=== PATIENT | male | born 1940 | race Asian ===

== ENCOUNTER 2020-05-20 09:31 | Emergency (ER) | payer MEDICARE ==
[~2020-05-20] VITALS: Ht 154.9 cm; Wt 62.6 kg
[2020-05-20] MEDS ORDERED: ACCU-CHEK COMFORT CURVE STRIP VI ONE (10:00)
[2020-05-20 10:46] LABS: Hematocrit 41.9 % (41.0-53.0); Mean Corpuscular Hemoglobin 31.2 pg (28.0-32.0); Mean Corpuscular Hgb Conc. 33.4 g/dL (32.0-36.0); Mean Corpuscular Volume 93.4 fL (80.0-100.0); Platelet Count (auto) 220 10^3/uL (140-450); Red Blood Cells 4.48 10^6/uL (4.5-5.90); Red Cell Distribution Width 14.1 % (11.8-14.3); White Blood Cell 14.9 10^3/uL (4.4-10.8)
[2020-05-20 10:52] LABS: Basophils % (manual) 0 (0.0-2.0); Blast Cells 0; Eosinophils % (manual) 0 (0-7); Metamyelocytes % 0; Promyelocytes % 0; Reactive Lymphocytes 0
[2020-05-20] MEDS ORDERED: SODIUM CHLORIDE 0.9% 500 ML IVB ONE (10:53)
[2020-05-20] MEDS ORDERED: SODIUM CHLORIDE 0.9% 1,000 ML IV ONE (10:53)
[2020-05-20] MEDS ORDERED: MECLIZINE HCL 25 MG TAB PO ONE (11:00)
[2020-05-20] MEDS ORDERED: LORazepam 2MG/ML-1ML VIAL IV ONE (11:00)
[2020-05-20] MEDS ORDERED: FUROSEMIDE 20 MG/2 ML VIAL IV ONE (11:00)
[2020-05-20 11:07] LABS: Band Neutrophils % (manual) 4; Lymphocytes % (manual) 11 (10.0-50.0); Monocytes % (manual) 4 (0-12); Myelocytes % 2
[2020-05-20 11:08] LABS: Partial Thromboplastin Time 23.5 sec (23.64-32.05)
[2020-05-20 11:18] LABS: Albumin 3.7 g/dL (3.4-5.0); Calcium 8.8 mg/dL (8.5-10.1); Potassium 3.2 mmol/L (3.5-5.1)
[2020-05-20 11:23] LABS: BUN/Creatinine Ratio 18.5; Bilirubin, Total 0.5 mg/dL (0.2-1.0); Total Protein 7.4 g/dL (6.4-8.2)
[2020-05-20 11:56] LABS: Urine Bacteria NONE SEEN /hpf (None Seen); Urine Blood Negative /uL (Negative); Urine Specific Gravity 1.031 (1.001-1.035); Urine WBC <1 /hpf (0 - 3)
[2020-05-20] MEDS ORDERED: POTASSIUM EFFERVESENT TAB 25 MEQ PO ONE (12:00)
[2020-05-20] MEDS ORDERED: POTASSIUM EFFERVESENT TAB 25 MEQ ONE (12:57)
[2020-05-20 14:00] VITALS: BP 100/55
== END 2020-05-20 16:11 | disposition home or self-care (01) ==
LOC: ER 09:31
DX: H81.13 Benign paroxysmal vertigo, bilateral (principal); E11.65 Type 2 diabetes mellitus with hyperglycemia; E87.6 Hypokalemia; K21.9 Gastro-esophageal reflux disease without esophagitis; I10 Essential (primary) hypertension
CPT/HCPCS: 36415; 70450; 71045; 80053; 81001; 82962; 83735; 84484; 85007; 85027; 85610; 85730; 93005; 96361; 96374; 99285; J1940; J7030; J7040; J8597

== ENCOUNTER 2021-06-21 14:00 | Inpatient (IN) | payer MEDICARE ==
[~2021-06-21] VITALS: Ht 152.4 cm; Wt 59.9 kg
[2021-06-21 15:52] LABS: Hematocrit 43.9 % (41.0-53.0); Hemoglobin 14.9 g/dL (13.5-17.5); Mean Corpuscular Hemoglobin 31.9 pg (28.0-32.0); Mean Corpuscular Hgb Conc. 33.9 g/dL (32.0-36.0); Mean Corpuscular Volume 94.1 fL (80.0-100.0); Red Blood Cells 4.66 10^6/uL (4.5-5.90); Red Cell Distribution Width 14.8 % (11.8-14.3); White Blood Cell 13.1 10^3/uL (4.4-10.8)
[2021-06-21 15:55] LABS: Basophils % (manual) 0 (0.0-2.0); Blast Cells 0; Eosinophils % (manual) 0 (0-7); Metamyelocytes % 0; Myelocytes % 0; Promyelocytes % 0; Reactive Lymphocytes 0
[2021-06-21 16:05] LABS: Albumin 3.5 g/dL (3.4-5.0); Calcium 8.8 mg/dL (8.5-10.1); Potassium 4.7 mmol/L (3.5-5.1)
[2021-06-21 16:07] LABS: INR 0.9 (0.9-1.15); Partial Thromboplastin Time 24.3 sec (23.6-33.0)
[2021-06-21 16:08] LABS: BUN/Creatinine Ratio 25.2; Bilirubin, Total 0.7 mg/dL (0.2-1.0); Total Protein 7.8 g/dL (6.4-8.2)
[2021-06-21 16:35] LABS: Band Neutrophils % (manual) 10; Lymphocytes % (manual) 5 (10.0-50.0); Monocytes % (manual) 7 (0-12)
[2021-06-21] MEDS ORDERED: InsuLIN REG 1unit/0.01ml Soln (100units/ml) IV ONE (17:00)
[2021-06-21] MEDS ORDERED: NITROGLYCERIN 0.4 MG SL TAB SL PRN (19:15)
[2021-06-21] MEDS ORDERED: DEXTROSE (50%) 50ML SYRG IV PRN (19:15)
[2021-06-21] MEDS ORDERED: ACETAMINOPHEN 500 MG TAB PO PRN (19:15)
[2021-06-21] MEDS ORDERED: ONDANSETRON HCL 4 MG/2 ML VIAL IV PRN (19:15)
[2021-06-21] MEDS ORDERED: HYDROcodone-ACET 5/325MG TAB PO PRN (19:15)
[2021-06-21] MEDS ORDERED: MORPHINE SULFATE INJECTION 2 MG/2 ML SYRG IV PRN (19:15)
[2021-06-21] MEDS ORDERED: hydrALAZINE HCL 20 MG/ML VL IV PRN (19:15)
[2021-06-21 20:15] LABS: Cholesterol 215 mg/dL (< 200)
[2021-06-21 20:19] LABS: HDL Cholesterol 31 mg/dL (40-59); Triglycerides 447 mg/dL (< 150)
[2021-06-21 21:00] VITALS: BP 129/70
[2021-06-21] MEDS: ACCU-CHEK COMFORT CURVE STRIP VI SCH (21:52)
[2021-06-21] MEDS: SODIUM CHLORIDE 0.9% 1,000 ML IV SCH (21:53)
[2021-06-21] MEDS: InsuLIN REG 1unit/0.01ml Soln (100units/ml) SC SCH (21:53)
[2021-06-21 22:21] LABS: Urine Bacteria NONE SEEN /hpf (None Seen); Urine Blood Negative /uL (Negative); Urine Mucus FEW (None Seen); Urine Specific Gravity 1.037 (1.001-1.035); Urine WBC <1 /hpf (0 - 3)
[2021-06-22 04:58] VITALS: BP 126/66
[2021-06-22] MEDS: SODIUM CHLORIDE 0.9% 1,000 ML IV SCH ×2 (05:09→17:12)
[2021-06-22 06:07] LABS: Hematocrit 35.5 % (41.0-53.0); Hemoglobin 12.6 g/dL (13.5-17.5); Mean Corpuscular Hemoglobin 32.8 pg (28.0-32.0); Mean Corpuscular Hgb Conc. 35.4 g/dL (32.0-36.0); Mean Corpuscular Volume 92.8 fL (80.0-100.0); Red Blood Cells 3.82 10^6/uL (4.5-5.90); Red Cell Distribution Width 14.6 % (11.8-14.3); White Blood Cell 8.1 10^3/uL (4.4-10.8)
[2021-06-22 06:15] LABS: Potassium 3.8 mmol/L (3.5-5.1)
[2021-06-22 06:20] LABS: BUN/Creatinine Ratio 34.8; Calcium 7.8 mg/dL (8.5-10.1)
[2021-06-22] MEDS: ACCU-CHEK COMFORT CURVE STRIP VI SCH ×4 (06:23→20:57)
[2021-06-22 06:30] LABS: Basophils % (manual) 0 (0.0-2.0); Blast Cells 0; Promyelocytes % 0; Reactive Lymphocytes 0
[2021-06-22] MEDS: InsuLIN REG 1unit/0.01ml Soln (100units/ml) SC SCH ×3 (06:30→17:50)
[2021-06-22 07:01] LABS: Metamyelocytes % 1
[2021-06-22 07:08] LABS: Band Neutrophils % (manual) 23; Eosinophils % (manual) 2 (0-7); Lymphocytes % (manual) 20 (10.0-50.0); Monocytes % (manual) 6 (0-12)
[2021-06-22 07:09] LABS: Myelocytes % 2
[2021-06-22 09:00] VITALS: BP 122/64
[2021-06-22] MEDS ORDERED: ENOXAPARIN SOD 40 MG/0.4 ML SYRINGE SC ONE (10:00)
[2021-06-22 12:48] VITALS: BP 74/40
[2021-06-22] MEDS ORDERED: ceFAZolin 1GM/50ML 50 ML IV ONE (15:00)
[2021-06-22] MEDS ORDERED: DEXTROSE (50%) 50ML SYRG IV PRN (15:00)
[2021-06-22 16:57] VITALS: BP 139/67
[2021-06-22] MEDS: ceFAZolin 1GM/50ML 50 ML IV SCH ×2 (17:12→23:41)
[2021-06-22] MEDS: ATORVASTATIN 20 MG TAB PO SCH (20:57)
[2021-06-22] MEDS ORDERED: ATOR10TA52 PO (21:33)
[2021-06-22] MEDS ORDERED: METF-370 PO (21:33)
[2021-06-22] MEDS ORDERED: GLIP5TAB12 PO (21:33)
[2021-06-22 22:00] VITALS: BP 161/71
[2021-06-22] MEDS ORDERED: InsuLIN REG 1unit/0.01ml Soln (100units/ml) SC SCH (22:00)
[2021-06-23] MEDS: SODIUM CHLORIDE 0.9% 1,000 ML IV SCH ×3 (02:14→13:56)
[2021-06-23] MEDS: ceFAZolin 1GM/50ML 50 ML IV SCH ×4 (05:25→23:49)
[2021-06-23] MEDS: InsuLIN REG 1unit/0.01ml Soln (100units/ml) SC SCH ×4 (05:45→21:13)
[2021-06-23] MEDS: ACCU-CHEK COMFORT CURVE STRIP VI SCH ×4 (05:46→21:14)
[2021-06-23 06:25] VITALS: BP 127/70
[2021-06-23] MEDS ORDERED: PHENYLEPHRINE HCL 10 MG/ML VL IV ONE (06:55)
[2021-06-23] MEDS ORDERED: DexAMETHasone SOD PHOS 10MG/1ML VIAL INJ IV ONE (06:55)
[2021-06-23 09:58] VITALS: BP 125/71
[2021-06-23 13:00] VITALS: BP 135/65
[2021-06-23] MEDS ORDERED: TETRACAINE 1% INJ 2 ML VIAL IJ ONE (15:35)
[2021-06-23] MEDS ORDERED: TRANEXAMIC ACID 20 ML ONE (15:35)
[2021-06-23 16:34] VITALS: BP 125/67
[2021-06-23] MEDS ORDERED: InsuLIN REG 1unit/0.01ml Soln (100units/ml) SC ONE (21:00)
[2021-06-23] MEDS ORDERED: DEXTROSE (50%) 50ML SYRG IV PRN (21:00)
[2021-06-23] MEDS: ATORVASTATIN 20 MG TAB PO SCH (21:09)
[2021-06-23] MEDS: DOCUSATE SOD 100 MG CAP PO SCH (21:10)
[2021-06-23 22:00] VITALS: BP 140/74
[2021-06-24] VITALS (20 sets, daily range): BP systolic 81–118; BP diastolic 29–72
[2021-06-24] MEDS: SODIUM CHLORIDE 0.9% 1,000 ML IV SCH ×2 (04:08→12:26)
[2021-06-24] MEDS: ceFAZolin 1GM/50ML 50 ML IV SCH ×4 (05:19→20:10)
[2021-06-24] MEDS: InsuLIN REG 1unit/0.01ml Soln (100units/ml) SC SCH ×4 (05:32→22:08)
[2021-06-24] MEDS: ACCU-CHEK COMFORT CURVE STRIP VI SCH ×4 (05:33→22:00)
[2021-06-24 05:56] LABS: Hematocrit 39.5 % (41.0-53.0); Hemoglobin 13.9 g/dL (13.5-17.5); Mean Corpuscular Hemoglobin 31.9 pg (28.0-32.0); Mean Corpuscular Hgb Conc. 35.1 g/dL (32.0-36.0); Mean Corpuscular Volume 90.9 fL (80.0-100.0); Red Blood Cells 4.35 10^6/uL (4.5-5.90); Red Cell Distribution Width 14.4 % (11.8-14.3); White Blood Cell 9.4 10^3/uL (4.4-10.8)
[2021-06-24 06:06] LABS: Basophils % (manual) 0 (0.0-2.0); Blast Cells 0; Metamyelocytes % 0; Promyelocytes % 0; Reactive Lymphocytes 0
[2021-06-24 06:22] LABS: Calcium 8.2 mg/dL (8.5-10.1); Potassium 4.1 mmol/L (3.5-5.1)
[2021-06-24 06:25] LABS: BUN/Creatinine Ratio 22.9
[2021-06-24] MEDS: BUPIVACAINE 0.25% INJ 50ML VIAL ONE ×2 (06:31→08:10)
[2021-06-24] MEDS: KETOROLAC TROMETH 30 MG/ML 1ML VIAL ONE ×2 (06:32→08:10)
[2021-06-24] MEDS: VANCOMYCIN HCL 1000 MG VL ONE (06:33)
[2021-06-24] MEDS ORDERED: ceFAZolin 1GM/50ML 50 ML IV ONE (06:49)
[2021-06-24] MEDS ORDERED: MORPHINE SULF(PF) 0.5MG/ML 10ML VIAL ONE (07:03)
[2021-06-24] MEDS ORDERED: MIDAZOLAM HCL 2MG/2ML 2ml VIAL (1mg/ml) ONE ×2 (07:04→07:32)
[2021-06-24] MEDS ORDERED: fentaNYL CITRATE 100 MCG/2 ML VL ONE (07:04)
[2021-06-24] MEDS ORDERED: PROPOFOL 10 MG/ML 20 ML IV ONE (07:29)
[2021-06-24 08:44] LABS: Band Neutrophils % (manual) 8; Eosinophils % (manual) 2 (0-7); Lymphocytes % (manual) 6 (10.0-50.0); Monocytes % (manual) 6 (0-12); Myelocytes % 1
[2021-06-24] MEDS ORDERED: LACTATED RINGER'S 1,000 ML IV SCH (08:45)
[2021-06-24] MEDS ORDERED: ePHEDrine SULFATE 50 MG/ML AMP ONE (08:51)
[2021-06-24] MEDS ORDERED: HYDROmorphone HCL 2 MG/ML VL IV PRN (09:00)
[2021-06-24] MEDS ORDERED: ePHEDrine SULFATE 50 MG/ML AMP IV PRN (09:00)
[2021-06-24] MEDS ORDERED: LABETALOL HCL 5 MG/ML 4ML SYRINGE IV PRN (09:00)
[2021-06-24] MEDS ORDERED: NALOXONE HCL 0.4 MG/ML VIAL IV PRN (09:00)
[2021-06-24] MEDS ORDERED: ONDANSETRON HCL 4 MG/2 ML VIAL IV PRN (09:00)
[2021-06-24] MEDS ORDERED: diphenhdrAMINE HCL 50 MG/1 ML VL IV PRN (09:00)
[2021-06-24] MEDS ORDERED: DexAMETHasone SOD PHOS 10MG/1ML VIAL INJ IV PRN (09:00)
[2021-06-24] MEDS ORDERED: NALBUPHINE HCL 10 MG/1ml INJECTION SUBCUT ONE (09:00)
[2021-06-24] MEDS: ENOXAPARIN SOD 40 MG/0.4 ML SYRINGE SC SCH (10:00)
[2021-06-24] MEDS ORDERED: ENOXAPARIN SOD 30 MG/0.3 ML SYRINGE SC SCH (10:00)
[2021-06-24] MEDS: DOCUSATE SOD 100 MG CAP PO SCH ×2 (10:00→22:00)
[2021-06-24] MEDS: PROMETHAZINE HCL 25 MG/ML 1ML IV PRN (12:34)
[2021-06-24 13:43] LABS: Hemoglobin 12.1 g/dL (13.5-17.5)
[2021-06-24] MEDS: ATORVASTATIN 20 MG TAB PO SCH (22:00)
[2021-06-24] MEDS: INSULIN LANTUS (GLARGINE) 1 /0.01ml (100units/ml) SC SCH (22:08)
[2021-06-25] VITALS (12 sets, daily range): BP systolic 90–115; BP diastolic 40–62
[2021-06-25] MEDS: SODIUM CHLORIDE 0.9% 1,000 ML IV SCH ×2 (00:47→07:30)
[2021-06-25 06:03] LABS: Hematocrit 29.6 % (41.0-53.0); Hemoglobin 10.3 g/dL (13.5-17.5); Mean Corpuscular Hemoglobin 32.4 pg (28.0-32.0); Mean Corpuscular Hgb Conc. 34.9 g/dL (32.0-36.0); Mean Corpuscular Volume 92.8 fL (80.0-100.0); Red Blood Cells 3.19 10^6/uL (4.5-5.90); Red Cell Distribution Width 14.3 % (11.8-14.3); White Blood Cell 11.5 10^3/uL (4.4-10.8)
[2021-06-25] MEDS: ACCU-CHEK COMFORT CURVE STRIP VI SCH ×4 (06:09→21:45)
[2021-06-25] MEDS: InsuLIN REG 1unit/0.01ml Soln (100units/ml) SC SCH ×4 (06:12→21:48)
[2021-06-25 06:20] LABS: Basophils % (manual) 0 (0.0-2.0); Blast Cells 0; Metamyelocytes % 0; Myelocytes % 0; Promyelocytes % 0; Reactive Lymphocytes 0
[2021-06-25 06:52] LABS: Albumin 2.2 g/dL (3.4-5.0); Calcium 7.4 mg/dL (8.5-10.1); Potassium 4.4 mmol/L (3.5-5.1)
[2021-06-25 06:55] LABS: BUN/Creatinine Ratio 33.8; Magnesium 2.2 mg/dL (1.6-2.6)
[2021-06-25 06:58] LABS: Band Neutrophils % (manual) 27; Bilirubin, Total 0.4 mg/dL (0.2-1.0); Eosinophils % (manual) 2 (0-7); Lymphocytes % (manual) 14 (10.0-50.0); Monocytes % (manual) 12 (0-12); Total Protein 5.3 g/dL (6.4-8.2)
[2021-06-25] MEDS: VANCOMYCIN HCL 1000 MG VL ONE (08:15)
[2021-06-25] MEDS: ENOXAPARIN SOD 40 MG/0.4 ML SYRINGE SC SCH (09:53)
[2021-06-25] MEDS: DOCUSATE SOD 100 MG CAP PO SCH ×2 (09:53→21:45)
[2021-06-25] MEDS: PROMETHAZINE HCL 25 MG/ML 1ML IV PRN (09:55)
[2021-06-25] MEDS: MORPHINE SULFATE INJECTION 2 MG/2 ML SYRG IV PRN (09:55)
[2021-06-25] MEDS: ATORVASTATIN 20 MG TAB PO SCH (21:45)
[2021-06-25] MEDS: INSULIN LANTUS (GLARGINE) 1 /0.01ml (100units/ml) SC SCH (21:49)
[2021-06-25] MEDS ORDERED: FLEET ENEMA(ADULT) 135 ML PR ONE (23:15)
[2021-06-26 05:00] VITALS: BP 120/67
[2021-06-26] MEDS: SODIUM CHLORIDE 0.9% 1,000 ML IV SCH ×3 (05:28→22:33)
[2021-06-26] MEDS: InsuLIN REG 1unit/0.01ml Soln (100units/ml) SC SCH ×4 (05:41→21:55)
[2021-06-26] MEDS: ACCU-CHEK COMFORT CURVE STRIP VI SCH ×4 (05:41→21:54)
[2021-06-26 08:23] LABS: Hematocrit 32.4 % (41.0-53.0); Hemoglobin 11.5 g/dL (13.5-17.5); Mean Corpuscular Hemoglobin 32.4 pg (28.0-32.0); Mean Corpuscular Hgb Conc. 35.3 g/dL (32.0-36.0); Mean Corpuscular Volume 91.6 fL (80.0-100.0); Red Blood Cells 3.54 10^6/uL (4.5-5.90); Red Cell Distribution Width 14.3 % (11.8-14.3); White Blood Cell 8.4 10^3/uL (4.4-10.8)
[2021-06-26 08:32] LABS: Basophils % (manual) 0 (0.0-2.0); Blast Cells 0; Metamyelocytes % 0; Promyelocytes % 0; Reactive Lymphocytes 0
[2021-06-26 09:00] VITALS: BP 135/59
[2021-06-26] MEDS: ENOXAPARIN SOD 40 MG/0.4 ML SYRINGE SC SCH (09:09)
[2021-06-26] MEDS: DOCUSATE SOD 100 MG CAP PO SCH ×2 (09:09→21:55)
[2021-06-26] MEDS: MORPHINE SULFATE INJECTION 2 MG/2 ML SYRG IV PRN (09:10)
[2021-06-26 12:16] LABS: Band Neutrophils % (manual) 13; Eosinophils % (manual) 4 (0-7); Lymphocytes % (manual) 11 (10.0-50.0); Monocytes % (manual) 5 (0-12); Myelocytes % 1
[2021-06-26 13:00] VITALS: BP 116/62
[2021-06-26 17:00] VITALS: BP 128/60
[2021-06-26] MEDS: Glucerna Carbsteady SHAKE Vanilla 8oz PO SCH (18:00)
[2021-06-26] MEDS: ATORVASTATIN 20 MG TAB PO SCH (21:55)
[2021-06-26] MEDS: INSULIN LANTUS (GLARGINE) 1 /0.01ml (100units/ml) SC SCH (21:55)
[2021-06-26 22:00] VITALS: BP 112/71
[2021-06-27 05:00] VITALS: BP 128/62
[2021-06-27 06:32] LABS: Hematocrit 32.1 % (41.0-53.0); Hemoglobin 11.6 g/dL (13.5-17.5); Mean Corpuscular Hemoglobin 32.8 pg (28.0-32.0); Mean Corpuscular Volume 91.2 fL (80.0-100.0); Red Blood Cells 3.52 10^6/uL (4.5-5.90); White Blood Cell 8.7 10^3/uL (4.4-10.8)
[2021-06-27] MEDS: ACCU-CHEK COMFORT CURVE STRIP VI SCH ×4 (06:40→21:52)
[2021-06-27] MEDS: InsuLIN REG 1unit/0.01ml Soln (100units/ml) SC SCH ×4 (06:41→21:52)
[2021-06-27 06:43] LABS: Band Neutrophils % (manual) 0; Basophils % (manual) 0 (0.0-2.0); Blast Cells 0; Calcium 7.6 mg/dL (8.5-10.1); Metamyelocytes % 0; Myelocytes % 0; Potassium 4.1 mmol/L (3.5-5.1); Promyelocytes % 0; Reactive Lymphocytes 0
[2021-06-27 06:46] LABS: Albumin 2.2 g/dL (3.4-5.0); BUN/Creatinine Ratio 24.2
[2021-06-27 06:49] LABS: Bilirubin, Total 0.8 mg/dL (0.2-1.0)
[2021-06-27] MEDS: Glucerna Carbsteady SHAKE Vanilla 8oz PO SCH ×3 (07:37→17:45)
[2021-06-27 08:17] LABS: Eosinophils % (manual) 1 (0-7); Lymphocytes % (manual) 20 (10.0-50.0); Monocytes % (manual) 3 (0-12)
[2021-06-27 09:00] VITALS: BP 111/55
[2021-06-27] MEDS: DOCUSATE SOD 100 MG CAP PO SCH ×2 (09:45→21:51)
[2021-06-27] MEDS: ENOXAPARIN SOD 40 MG/0.4 ML SYRINGE SC SCH (09:45)
[2021-06-27 13:05] VITALS: BP 102/54
[2021-06-27 16:48] VITALS: BP 124/57
[2021-06-27] MEDS: LACTULOSE 20Gm/30ML SOLN PO PRN (18:00)
[2021-06-27] MEDS: ATORVASTATIN 20 MG TAB PO SCH (21:52)
[2021-06-27] MEDS: INSULIN LANTUS (GLARGINE) 1 /0.01ml (100units/ml) SC SCH (21:52)
[2021-06-27 22:00] VITALS: BP 126/52
[2021-06-28] MEDS: SODIUM CHLORIDE 0.9% 1,000 ML IV SCH ×2 (03:44→09:35)
[2021-06-28 05:35] VITALS: BP 110/57
[2021-06-28 05:58] LABS: Hemoglobin 11.2 g/dL (13.5-17.5); Mean Corpuscular Hemoglobin 31.7 pg (28.0-32.0); Mean Corpuscular Hgb Conc. 34.9 g/dL (32.0-36.0); Mean Corpuscular Volume 90.8 fL (80.0-100.0); Red Blood Cells 3.52 10^6/uL (4.5-5.90); Red Cell Distribution Width 14.4 % (11.8-14.3); White Blood Cell 7.4 10^3/uL (4.4-10.8)
[2021-06-28 06:23] LABS: Band Neutrophils % (manual) 0; Basophils % (manual) 0 (0.0-2.0); Blast Cells 0; Promyelocytes % 0; Reactive Lymphocytes 0
[2021-06-28 06:32] LABS: Potassium 4.3 mmol/L (3.5-5.1)
[2021-06-28] MEDS: ACCU-CHEK COMFORT CURVE STRIP VI SCH ×4 (06:37→22:00)
[2021-06-28] MEDS: InsuLIN REG 1unit/0.01ml Soln (100units/ml) SC SCH ×4 (06:37→22:00)
[2021-06-28 06:54] LABS: BUN/Creatinine Ratio 21.9
[2021-06-28] MEDS: Glucerna Carbsteady SHAKE Vanilla 8oz PO SCH ×3 (08:00→18:55)
[2021-06-28 09:00] VITALS: BP 99/56
[2021-06-28 09:24] LABS: Eosinophils % (manual) 1 (0-7); Lymphocytes % (manual) 14 (10.0-50.0); Metamyelocytes % 2; Monocytes % (manual) 13 (0-12); Myelocytes % 1
[2021-06-28] MEDS: DOCUSATE SOD 100 MG CAP PO SCH ×2 (09:24→21:20)
[2021-06-28] MEDS: ENOXAPARIN SOD 40 MG/0.4 ML SYRINGE SC SCH (09:24)
[2021-06-28 12:49] VITALS: BP 103/65
[2021-06-28] MEDS ORDERED: DEXTROSE (50%) 50ML SYRG IV PRN (13:30)
[2021-06-28] MEDS ORDERED: ASPI-378 PO (13:43)
[2021-06-28] MEDS ORDERED: INSLANTI SC (13:43)
[2021-06-28] MEDS: glipiZIDE 5 MG TAB PO SCH (16:43)
[2021-06-28 16:59] VITALS: BP 103/64
[2021-06-28] MEDS: ATORVASTATIN 20 MG TAB PO SCH (21:20)
[2021-06-28 22:00] VITALS: BP 110/52
[2021-06-28] MEDS: INSULIN LANTUS (GLARGINE) 1 /0.01ml (100units/ml) SC SCH (22:00)
[2021-06-28] MEDS ORDERED: INSULIN LANTUS (GLARGINE) 1 /0.01ml (100units/ml) SC SCH (22:00)
[2021-06-29 05:00] VITALS: BP 109/65
[2021-06-29] MEDS: InsuLIN REG 1unit/0.01ml Soln (100units/ml) SC SCH ×4 (06:13→22:00)
[2021-06-29] MEDS: ACCU-CHEK COMFORT CURVE STRIP VI SCH ×4 (06:13→22:58)
[2021-06-29] MEDS: glipiZIDE 5 MG TAB PO SCH ×2 (06:28→17:22)
[2021-06-29] MEDS ORDERED: glipiZIDE 5 MG TAB PO SCH (07:00)
[2021-06-29] MEDS: Glucerna Carbsteady SHAKE Vanilla 8oz PO SCH ×3 (08:43→17:44)
[2021-06-29 09:00] VITALS: BP 115/58
[2021-06-29] MEDS: ASPirin-EC 81 mg tab PO SCH (10:11)
[2021-06-29] MEDS: ENOXAPARIN SOD 40 MG/0.4 ML SYRINGE SC SCH (10:11)
[2021-06-29] MEDS: DOCUSATE SOD 100 MG CAP PO SCH ×2 (10:11→22:58)
[2021-06-29 17:00] VITALS: BP 128/88
[2021-06-29] MEDS: INSULIN LANTUS (GLARGINE) 1 /0.01ml (100units/ml) SC SCH (22:00)
[2021-06-29] MEDS: ATORVASTATIN 20 MG TAB PO SCH (22:58)
[2021-06-30 05:00] VITALS: BP 120/58
[2021-06-30] MEDS: glipiZIDE 5 MG TAB PO SCH (06:47)
[2021-06-30] MEDS: ACCU-CHEK COMFORT CURVE STRIP VI SCH ×2 (06:48→11:42)
[2021-06-30] MEDS: InsuLIN REG 1unit/0.01ml Soln (100units/ml) SC SCH ×2 (06:49→11:47)
[2021-06-30 08:21] VITALS: BP 112/41
[2021-06-30] MEDS: Glucerna Carbsteady SHAKE Vanilla 8oz PO SCH (08:36)
[2021-06-30] MEDS: ASPirin-EC 81 mg tab PO SCH (09:57)
[2021-06-30] MEDS: DOCUSATE SOD 100 MG CAP PO SCH (09:57)
[2021-06-30] MEDS: ENOXAPARIN SOD 40 MG/0.4 ML SYRINGE SC SCH (10:00)
[2021-06-30] MEDS: LACTULOSE 20Gm/30ML SOLN PO PRN (10:00)
[2021-06-30 15:56] VITALS: BP 112/41
== END 2021-06-30 16:45 | DRG 522 ==
LOC: ER 14:00 → TELE 19:13 → TELE-WESTW 20:30 → WEST WING 06-29 10:10
PROVIDERS: ADMIT Nurse Practitioner Acute Care; ATTEND Internal Medicine
PROC: 0SRR01Z Replacement of Right Hip Joint, Femoral Surface with Metal Synthetic Substitute, Open Approach (ICD-10-PCS; principal; 2021-06-24 06:58)
DX: S72.091A Other fracture of head and neck of right femur, initial encounter for closed fracture (principal); R65.10 Systemic inflammatory response syndrome (SIRS) of non-infectious origin without acute organ dysfunction; E87.1 Hypo-osmolality and hyponatremia; E44.0 Moderate protein-calorie malnutrition; D62 Acute posthemorrhagic anemia; E78.5 Hyperlipidemia, unspecified; J44.9 Chronic obstructive pulmonary disease, unspecified; I12.9 Hypertensive chronic kidney disease with stage 1 through stage 4 chronic kidney disease, or unspecified chronic kidney disease; Z20.822 Contact with and (suspected) exposure to COVID-19; E11.22 Type 2 diabetes mellitus with diabetic chronic kidney disease; I95.9 Hypotension, unspecified; E11.65 Type 2 diabetes mellitus with hyperglycemia; N18.9 Chronic kidney disease, unspecified; W18.30XA Fall on same level, unspecified, initial encounter; Z79.84 Long term (current) use of oral hypoglycemic drugs; Z80.1 Family history of malignant neoplasm of trachea, bronchus and lung; Z80.3 Family history of malignant neoplasm of breast; Z80.42 Family history of malignant neoplasm of prostate; Z80.8 Family history of malignant neoplasm of other organs or systems; Z81.8 Family history of other mental and behavioral disorders; Z82.0 Family history of epilepsy and other diseases of the nervous system; Z82.3 Family history of stroke; Z82.49 Family history of ischemic heart disease and other diseases of the circulatory system; Z82.5 Family history of asthma and other chronic lower respiratory diseases; Z82.62 Family history of osteoporosis; Z83.3 Family history of diabetes mellitus; K21.9 Gastro-esophageal reflux disease without esophagitis; Y93.89 Activity, other specified; Y92.89 Other specified places as the place of occurrence of the external cause
CPT/HCPCS: 36415; 71045; 72170; 73502; 80048; 80053; 80061; 81001; 82962; 83036; 83735; 84443; 85007; 85014; 85018; 85027; 85610; 85730; 86850; 86900; 86901; 87040; 87426; 93005; 93306; 96361; 96374; 97110; 97116; 97163; 97530; A4565; G0378; J0690; J1100; J1815; J1885; J2250; J2405; J2704; J3490

== ENCOUNTER 2021-11-13 23:21 | Emergency (ER) | payer MEDICARE ==
[~2021-11-13] VITALS: Ht 154.9 cm; Wt 54.4 kg
[~2021-11-13 23:21] MED LIST: ATOR10TA52 PO; GLIP5TAB12 PO; INSLANTI SC; METF-370 PO
[2021-11-14 01:36] LABS: Hematocrit 41.9 % (41.0-53.0); Mean Corpuscular Hemoglobin 30.2 pg (28.0-32.0); Mean Corpuscular Hgb Conc. 33.4 g/dL (32.0-36.0); Mean Corpuscular Volume 90.6 fL (80.0-100.0); Red Blood Cells 4.62 10^6/uL (4.5-5.90); Red Cell Distribution Width 15.5 % (11.8-14.3); White Blood Cell 17.5 10^3/uL (4.4-10.8)
[2021-11-14 01:39] LABS: Basophils % (manual) 0 (0.0-2.0); Blast Cells 0; Eosinophils % (manual) 0 (0-7); Metamyelocytes % 0; Promyelocytes % 0; Reactive Lymphocytes 0
[2021-11-14 01:56] LABS: BUN/Creatinine Ratio 25.9; Potassium 5.1 mmol/L (3.5-5.1)
[2021-11-14 02:17] LABS: Band Neutrophils % (manual) 26; Lymphocytes % (manual) 4 (10.0-50.0); Monocytes % (manual) 4 (0-12); Myelocytes % 2
[2021-11-14] MEDS ORDERED: SODIUM CHLORIDE 0.9% 1,000 ML IV ONE (07:00)
[2021-11-14 09:28] VITALS: BP 139/68
== END 2021-11-14 09:30 | disposition home or self-care (01) ==
LOC: EDBD 23:21 → ER 23:21
DX: R11.2 Nausea with vomiting, unspecified (principal); R42 Dizziness and giddiness; E11.65 Type 2 diabetes mellitus with hyperglycemia; I10 Essential (primary) hypertension; E78.5 Hyperlipidemia, unspecified; Z90.89 Acquired absence of other organs; Z85.46 Personal history of malignant neoplasm of prostate
CPT/HCPCS: 36415; 74176; 80048; 82962; 85007; 85027; 93005; 96360; 99285; J7030

== ENCOUNTER 2025-10-30 14:09 | Inpatient (IN) | payer OTHER ==
[~2025-10-30] VITALS: Ht 157.5 cm; Wt 56.2 kg
[~2025-10-30 14:09] MED LIST changes: -GLIP5TAB12 PO; +GLIP5TAB21 PO
--- NOTE | 2025-10-30 15:16 | ED.PDOC ---
General HPI Comments A 84 YEAR OLD MALE PRESENTS TO THE ED WITH COMPLAINT OF LEFT FLANK PAIN. PATIENT STATES HE HAS BEEN EXPERIENCING LEFT FLANK PAIN FOR THE PAST 10 DAYS. PATIENT REPORTS HE HAD THE SAME PAIN AROUND 1 MONTH AGO, BUT NOTES IT WENT AWAY AND THEN RETURNED 10 DAYS AGO. PATIENT DENIES DYSURIA, HEMATURIA, FEVER, CHILLS, SHORTNESS OF BREATH, CHEST PAIN, ABDOMINAL PAIN, NAUSEA, VOMITING, HEADACHE, OR OTHER COMPLAINTS. NO OTHER SYMPTOMS OR MODIFYING FACTORS AT THIS TIME. PATIENT IS ALERT, ORIENTED X 4, AND HAS STEADY GAIT. Chief Complaint: Flank Pain Time Seen by MD: 14:19 Primary Care Provider: DAVID Reviewed notes: Nurses Notes, Medications, Allergies Allergies: Coded Allergies: NO KNOWN ALLERGIES (Unverified , 02/11/15) Home Meds Active Scripts Insulin Glargine (Lantus) 100 Unit/Ml Inj, 15 UNIT SC HS for 30 Days, #30 INJ Prov:JUD MCKENNA MD 06/28/21 Reported Medications Glipizide (Glipizide) 5 Mg Tab, 5 MG PO BID, TAB 06/22/21 Atorvastatin Calcium (ATORVASTATIN CALCIUM) 10 Mg Tab, 10 MG PO DAILY, TAB 06/22/21 Metformin Hydrochloride (Metformin Hcl) 500 Mg Tab, 1000 MG PO IBID for 30 Days, MG 06/22/21 Information Source: Patient Mode of Arrival: Wheelchair Severity: Moderate Inability to void: None Timing: Days Duration: Since onset, Days Prehospital treatment: None Onset: Spontaneous Symptoms: Other (LEFT FLANK PAIN) History of: None Location: (L)Flank Penile discharge: None Modifying factors: None associated signs and symptoms: Flank Pain, Back Pain Past Medical History PAST MEDICAL HISTORY: DM, GERD, High Lipids, HTN Surgical History: Appendectomy Family History Family History: Reviewed,noncontributory to illness Social History Smoker: Non-Smoker Alcohol: Rarely Drugs: Denies Drug Use Lives In: Home Constitutional: denies: chills, diaphoresis, fatigue, fever, malaise, sweats, weakness, others EENTM: denies: blurred vision, double vision, ear bleeding, ear discharge, ear drainage, ear pain, ear ringing, eye pain, eye redness, hearing loss, mouth pain, mouth swelling, nasal discharge, nose bleeding, nose congestion, nose pain, photophobia, tearing, throat pain, throat swelling, voice changes, others Respiratory: denies: cough, hemoptysis, orthopnea, SOB at rest, shortness of breath, SOB with excertion, stridor, wheezing, others Cardiovascular: denies: chest pain, dizzy spells, diaphoresis, Dyspnea on exertion, edema, irregular heart beat, left arm pain, lightheadedness, palpitations, PND, syncope, others Gastrointestinal: denies: abdomen distended, abdominal pain, blood streaked bowels, constipated, diarrhea, dysphagia, difficulty swallowing, hematemesis, melena, nausea, poor appetite, poor fluid intake, rectal bleeding, rectal pain, vomiting, others Genitourinary: reports: flank pain; denies: burning, dysuria, frequency, hematuria, incontinence, penile discharge, penile sore, pain, testicle pain, testicle swelling, urgency, others Neurological: denies: dizziness, fainting, headache, left sided numbness, left sided weakness, numbness, paresthesia, pre-existing deficit, right sided numbness, right sided weakness, seizure, speech problems, tingling, tremors, weakness, others Musculoskeletal: reports: back pain, muscle pain; denies: gout, joint pain, joint swelling, muscle stiffness, neck pain, others Integumetry: denies: bruises, change in color, change in hair/nails, dryness, laceration, lesions, lumps, rash, wounds, others Allergic/Immunocompromised: denies: Difficulty Healing, Frequent Infections, Hi ves, Itching, others Hematologic/Lymphatic: denies: anemia, blood clots, easy bleeding, easy bruising, swollen glands, others Endocrine: denies: excessive hunger, excessive sweating, excessive thirst, excessive urination, flushing, intolerance to cold, intolerance to heat, unexplained weight gain, unexplained weight loss, others Psychiatric: denies: anxiety, bipolar disorder, depression, hopeless, panic disorder, schizophrenia, sleepless, suicidal, others All Other Systems: Reviewed and Negative Physical Exam General Appearance: No Apparent Distress, Normal HEENT: Normal ENT Inspection, PERRL/EOMI, Pharynx Normal, TMs Normal Neck: Full Range of Motion, Non-Tender, Normal, Normal Inspection Respiratory: Chest Non-Tender, Lungs Clear, No Accessory Muscle Use, No Respiratory Distress, Normal Breath Sounds Cardiovascular: No Edema, No JVD, No Murmur, No Gallop, Normal Peripheral Pulses, Regular Rate/Rhythm Breast Exam: Deferred Gastrointestinal: No Organomegaly, No Pulsatile Mass, Normal Bowel Sounds, Soft, Tenderness (RIGHT FLANK, NO GUARDING AND REBOUND TENDERNESS, NO CVA TENDERNESS. ) Genitalia: Deferred Pelvic: Deferred Rectal: Deferred Extremities: No calf tenderness, Normal capillary refill, Normal inspection, Normal range of motion, Non-tender, No pedal edema Musculoskeletal : Location: Right Extremity Location: Back Apperance: Tenderness: Moderate (AND MUSCLE TIGHTNESS ON RIGHT MIDDLE BACK, NO REDNESS AND SWELLING. ) Neurologic: Alert, group activities aide II-XII nml as Tested, No Motor Deficits, Normal Affect, Normal Mood, No Sensory Deficits Cerebellar Function: Normal Reflexes: Normal Skin: Dry, Normal Color, Warm Peripheral Pulses: 2+ carotid (R), 2+ carotid (L), 2+ dorsalis pedis (R), 2+ dorsalis pedis (L) Lymphatic: No Adenopathy Was a procedure done? Was a procedure done?: No Differential Diagnosis Kidney stone (Female): Musculoskeletal pain, N/A Kidney stone (Male): DJD, Renal failure, Strain, Urolithiasis, Urinary tract infection Penile/Scrotal: N/A Urinary Problem (Male): Urolithiasis, UTI, N/A Urinary Problem (Female): Pyelonephritis, N/A X-Ray, Labs, Meds, VS Vital Signs Date Time Temp Pulse Resp B/P (MAP) Pulse Ox O2 Delivery O2 Flow Rate FiO2 10/30/25 15:29 87 10/30/25 14:56 96 18 96 Room Air 10/30/25 14:56 98.7 96 18 100/48 (65) 96 98.7 10/30/25 14:12 98.7 93 18 100/48 97 98.7 Lab Test 10/30/25 15:13 10/30/25 14:54 Range/Units White Blood Count 3.8 L 4.4-10.8 10^3/uL Red Blood Count 3.85 L 4.5-5.90 10^6/uL Hemoglobin 10.7 L 13.5-17.5 g/dL Hematocrit 32.5 L 41.0-53.0 % Mean Corpuscular Volume 84.4 80.0-100.0 fL Mean Corpuscular Hemoglobin 27.9 L 28.0-32.0 pg Mean Corpuscular Hemoglobin Concent 33.0 32.0-36.0 g/dL Red Cell Distribution Width 16.6 H 11.8-14.3 % Platelet Count 305 140-450 10^3/uL Mean Platelet Volume 7.1 6.9-10.8 fL Neutrophils (%) (Auto) 37.0-80.0 % Lymphocytes (%) (Auto) 10.0-50.0 % Monocytes (%) (Auto) 0.0-12.0 % Basophils (%) (Auto) 0.0-2.0 % Neutrophils # (Auto) 1.6-8.6 10 ^3/uL Lymphocytes # (Auto) 0.4-5.4 10 ^3/uL Monocytes # (Auto) 0-1.3 10 ^3/uL Differential Total Cells Counted 100.0 100 Neutrophils % (Manual) 59 37.0-80.0 Band Neutrophils % (Manual) 0 Lymphocytes % (Manual) 30 10.0-50.0 Monocytes % (Manual) 10 0-12 Eosinophils % (Manual) 1 0-7 Basophils % (Manual) 0 0.0-2.0 Metamyelocytes % (manual) 0 Myelocytes % (Manual) 0 Promyelocytes % (Manual) 0 Blast Cells % (Manual) 0 Reactive Lymphocytes 0 Platelet Estimate Adequate Sodium Level 139 136-145 mmol/L Potassium Level 3.9 3.5-5.1 mmol/L Chloride Level 102 98-107 mmol/L Carbon Dioxide Level 25 20-31 mmol/L Anion Gap 12 5-15 Blood Urea Nitrogen 23 9-23 mg/dL Creatinine 0.92 0.700-1.30 mg/dL Glomerular Filtration Rate Calc 81 >90 mL/min BUN/Creatinine Ratio 25.0 H 10.0-20.0 Serum Glucose 228 H 74-106 mg/dL Calcium Level 8.7 8.7-10.4 mg/dL Total Bilirubin 0.4 0.2-1.0 mg/dL Aspartate Amino Transferase (AST) 15 13-40 U/L Alanine Aminotransferase (ALT) < 9 7-40 U/L Alkaline Phosphatase 133 H 46-116 U/L Troponin I High Sensitivity < 3 L </=54 ng/L Total Protein 7.0 5.7-8.2 g/dL Albumin 3.9 3.2-4.8 g/dL Lipase 27 12-53 U/L Urine Color Yellow Yellow Urine Clarity Clear Clear Urine pH 6.0 5.0-9.0 Urine Specific Edwards 1.029 1.001-1.035 Urine Protein 1+ H Negative Urine Ketones Trace Negative Urine Blood Negative Negative /uL Urine Nitrite Negative Negative Urine Bilirubin Negative Negative Urine Urobilinogen 2 H Negative mg/dL Urine Leukocyte Esterase Negative Negative /uL Urine RBC 2 0 - 3 /hpf Urine Microscopic WBC 1 0-3 /HPF Urine Squamous Epithelial Cells Few <5 /hpf Urine Bacteria None seen None Seen /hpf Urine Hyaline Casts Mod 0 - 2 /lpf Urine Mucus Few None Seen Urine Glucose Trace Normal mg/dL PATIENT: HOLLEY SALESACCT: [id number]: [id number] : 1940 LOC: ER ROOM / BED: / AGE / SEX: 84 / M ADM STATUS: REG ER SERVICE [id number] ORDERING PHYSICIAN: THALIA VIEYRA PROCEDURE(s): ABPL - CT AB PEL WO CON-NO ORAL OR IV REASON: LEFT FLANK PAIN ORDER NUMBER(s): [id number], ACCESSION NUMBER(s): [id number] EXAM: CT CT AB PEL WO CON-NO ORAL OR IV History: LEFT FLANK PAIN Comparison Study: CT ABD PELVIS WO CONTRAST on DOS: 11/14/21 TECHNIQUE: Multidetector CT of the abdomen was performed from lung bases to pubic symphysis. Imaging was performed without IV contrast. Axial, coronal and sagittal multiplanar reformats were obtained from the axial data set by the technologist. Radiation Dose Information: CT Dose: CTDI volume is 5. mGy. Dose-length product is 317 mGy*cm FINDINGS: Evaluation of solid organs is limited due to lack of intravenous contrast use. FINDINGS: Lung Bases: Increased reticulonodular densities are seen at both lung bases. The nodules are subcentimeter. There is either a small amount of pleural thickening or effusion at the right lung base. Liver: The liver is normal in size. No focal lesions. Gallbladder and Biliary Tree: Unremarkable Spleen: Unremarkable Pancreas: The pancreas is grossly normal in appearance. Adrenal Glands: Unremarkable Kidneys: Kidneys are grossly normal without calculi or hydronephrosis. Bladder: Grossly unremarkable for degree of distention. Bowel: The stomach is grossly normal in appearance. Small bowel and colon are normal in caliber and distribution. The appendix is not visualized; however, no secondary findings of acute appendicitis identified. Ascites: Absent Lymphadenopathy: No mesenteric, retroperitoneal or periportal lymphadenopathy. Abdominal Wall and Mesentery /retroperitoneum: There is increased mixed density measuring 3.7 cm in the left retroperitoneal area within the pelvis. There is also additional left retroperitoneal adenopathy seen just superior to this area as well as multiple enlarged left retroperitoneal lymph nodes at the region of the left kidney. There is also stranding around the left kidney. Vasculature: The visualized abdominal aorta is normal in size and caliber. Evaluation of abdominal and pelvic vessels is limited due to lack of intravenous contrast. Pelvic Organs: Unremarkable Musculoskeletal: Compression fracture of undetermined age at T9. Scattered sclerotic and lucent lesions seen throughout the vertebral bodies. Soft tissues: Unremarkable IMPRESSION: 1. Left-sided retroperitoneal adenopathy, worrisome for neoplasm, this does appear amenable to percutaneous biopsy. Clinical correlation recommended 2. Reticular nodular density seen at both lung bases, considering the retroperitoneal adenopathy, metastatic disease can not be excluded, clinical cor relation recommended. 3. A few sclerotic and lucent lesions are seen within the vertebral bodies, metastatic disease not excluded. 4. Radiation optimization: All CT scans at this facility use at least one of these dose optimization techniques: automated exposure control mA and/or kV adjustment per patient size (includes targeted exams where dose is matched to clinical indication) or iterative reconstruction. ATED BY: BONITA OLIVAREZ MD DICTATED DATE/TIME: 10/30/251616 SIGNED BY: BONITA OLIVAREZ MD SIGNED DATE/TIME: 10/30/251616 CC: PATIENT: HOLLEY SALES ACCT: [id number] UNIT: [id number] : 1940 LOC: ER ROOM / BED: / AGE / SEX: 84 / M ADM STATUS: REG ER SERVICE 21 ORDERING PHYSICIAN: THALIA VIEYRA PROCEDURE(s): LUMB2 - LUMBAR SPINE 3 VIEW REASON: LEFT BACK PAIN ORDER NUMBER(s): [id number], ACCESSION NUMBER(s): [id number] INDICATION: LEFT BACK PAIN TECHNIQUE: XY LUMBAR SPINE 3 VIEWXY Comparison: 10/30/2025 FINDINGS/IMPRESSION: Age indeterminate L1 compression deformity with 20% loss height. Correlate with pain symptoms. MRI lumbar spine can be obtained to further evaluate. Chronic appearing L4, L5 compression deformities with 20% loss height. Moderate multilevel disc space narrowing with endplate sclerosis. 3 mm retrolisthesis of L3 upon L4. Mild lumbar levocurvature. Atherosclerotic calcification disease. [id number] bilateral sacroiliac degenerative joint disease. ATED BY: FELTON SOLORZANO MD DICTATED DATE/TIME: 10/30/251703 SIGNED BY: FELTON SOLORZANO MD SIGNED DATE/TIME: 10/30/251703 CC: X-Ray, Labs, Meds, VS Comment EXTERNAL MEDICAL RECORDS REVIEWED: [NONE] INDEPENDENT HISTORIANS: [NONE] SOCIAL DETERMINANTS OF HEALTH: [NONE] LABS ORDERED: CBC, CMP, LIPASE, UA REVIEWED AND INTERPRETED RESULTS: NORMAL IMAGING ORDERED: CT ABD/PEL TREATMENTS ORDERED: NS 1L IV AND TYLENOL 650MG PO PROCEDURES PERFORMED: NONE CRITICAL CARE TIME: NONE I HAVE DISCUSSED THE PATIENT WITH THE ATTENDING PHYSICIAN DR. CHAPMAN AND HE AGREES WITH THE PATIENT'S PLAN OF CARE. UPON MY PHYSICAL EXAMINATION, THE PATIENT WAS WELL IN APPEARANCE, BUT CONTINUED TO HAVE MIDDLE BACK/LEFT FLANK PAIN DURING HIS TIME IN THE ED. A CT SCAN OF THE PATIENT'S ABDOMEN AND PELVIS WAS DONE WHICH REVEALED LEFT-SIDED RETROPERITONEAL ADENOPATHY, WORRISOME FOR NEOPLASM, AND A RETICULAR NODULAR DENSITY SEEN AT BASIM TH LUNG BASES WHICH CONSIDERING THE RETROPERITONEAL ADENOPATHY METASTATIC DISEASE CAN NOT BE EXCLUDED. DUE TO THE PATIENT'S PERSISTENT PAIN, AND CT SCAN RESULTS, I HAVE DETERMINED THE PATIENT NEEDS TO BE ADMITTED FOR FURTHER TREATMENT AND EVALUATION. THE ON-CALL HOSPITALIST WILL BE CONTACTED FOR ADMISSION OF THIS PATIENT. Images Reviewed?: Images reviewed and evaluated by me Time of 1ST Reevaluation: 17:30 Reevaluation 1ST: Unchanged Patient Education/Counseling: Diagnosis, Treatment Family Education/Counseling: Diagnosis, Treatment SEPSIS Sepsis Screen Date sepsis recognized/suspect: Oct 30, 2025 Time Sepsis recognized/suspect: 1413 Recent Procedure: No On Antibiotic Therapy: No Respiratory Rate >20: No Heart Rate >90: No Temp<36 C (96.8 F) or >38.3 C: No SBP <90 or MAP <65 mmHG: No New Acute Mental Status Change: No Is the patient on CPAP, BIPAP,: No Physician Orders Ct Ab Pel Wo Con-No Oral Or Iv (10/30/25 15:09) Lumbar Spine 3 View (10/30/25 16:22) Heplock Iv (10/30/25 ) Sodium Chloride 0.9% (10/30/25 16:45) Sodium Chloride 0.9% (10/30/25 16:45) Vital Signs Date Time Temp Pulse Resp B/P (MAP) Pulse Ox O2 Delivery O2 Flow Rate FiO2 10/30/25 15:29 87 10/30/25 14:56 96 18 96 Room Air 10/30/25 14:56 98.7 96 18 100/48 (65) 96 98.7 10/30/25 14:12 98.7 93 18 100/48 97 98.7 Laboratory Tests Test 10/30/25 15:13 White Blood Count 3.8 10^3/uL (4.4-10.8) L Departure 1 Departure Time of Disposition: 17:30 Impression: Primary Impression: Intractable back pain Additional Impressions: Metastasis Qualified Codes: 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 Electronically submitted by Gilberto Gray ([email or web address]). I personally scribed for THALIA VIEYRA ([email or web address]) on 10/30/25 at 16:54. Electronically submitted by Gilberto Gray ([email or web address]). THALIA VIEYRA Oct 30, 2025 15:16
--- NOTE | 2025-10-30 15:32 | ECG ---
[facility] Test Date: 2025-10-30 Test Time: 15:29:46 Pat Name: HOLLEY SALES Department: Room: Gender: M Planer Hand: ID : [id number] Requested By: THALIA VIEYRA Order Number: [id number] Reading MD: Jeff Siddiqui Measurements Intervals [place] Rate: 87 P: 37 [place]: 108 QRS: -8 QRSD: 69 T: -5 QT: 359 QTc: 432 Interpretive Statements Sinus rhythm Short [place] interval Low voltage, precordial leads Left ventricular hypertrophy Borderline T abnormalities, inferior leads Electronically Signed On 10-30-2025 17:26:54 PST by Jeff Siddiqui Please click the below link to view image of tracing.
[2025-10-30 15:43] LABS: Hematocrit 32.5 % (41.0-53.0); Hemoglobin 10.7 g/dL (13.5-17.5); Mean Corpuscular Hemoglobin 27.9 pg (28.0-32.0); Mean Corpuscular Volume 84.4 fL (80.0-100.0)
[2025-10-30 15:49] LABS: Urine Protein, UAD 1+ (Negative)
[2025-10-30 15:57] LABS: Anion Gap 12 (5-15); BUN/Creatinine Ratio 25.0 (10.0-20.0); Blood Urea Nitrogen 23 mg/dL (9-23); Calcium 8.7 mg/dL (8.7-10.4); Carbon Dioxide 25 mmol/L (20-31); Chloride 102 mmol/L (98-107); Lipase 27 U/L (12-53); Potassium 3.9 mmol/L (3.5-5.1); Sodium 139 mmol/L (136-145); Total Protein 7.0 g/dL (5.7-8.2)
[2025-10-30 15:58] LABS: Albumin 3.9 g/dL (3.2-4.8); Bilirubin, Total 0.4 mg/dL (0.2-1.0)
[2025-10-30 16:00] LABS: Alanine Aminotransferase < 9 U/L (7-40); Alkaline Phosphatase 133 U/L (46-116); Glucose 228 mg/dL (74-106)
--- NOTE | 2025-10-30 16:19 | DVH ---
EXAM: CT CT AB PEL WO CON-NO ORAL OR IV History: LEFT FLANK PAIN Comparison Study: CT ABD PELVIS WO CONTRAST on DOS: 11/14/21 TECHNIQUE: Multidetector CT of the abdomen was performed from lung bases to pubic symphysis. Imaging was performed without IV contrast. Axial, coronal and sagittal multiplanar reformats were obtained from the axial data set by the technologist. Radiation Dose Information: CT Dose: CTDI volume is 5. mGy. Dose-length product is 317 mGy*cm FINDINGS: Evaluation of solid organs is limited due to lack of intravenous contrast use. FINDINGS: Lung Bases: Increased reticulonodular densities are seen at both lung bases. The nodules are subcentimeter. There is either a small amount of pleural thickening or effusion at the right lung base. Liver: The liver is normal in size. No focal lesions. Gallbladder and Biliary Tree: Unremarkable Spleen: Unremarkable Pancreas: The pancreas is grossly normal in appearance. Adrenal Glands: Unremarkable Kidneys: Kidneys are grossly normal without calculi or hydronephrosis. Bladder: Grossly unremarkable for degree of distention. Bowel: The stomach is grossly normal in appearance. Small bowel and colon are normal in caliber and distribution. The appendix is not visualized; however, no secondary findings of acute appendicitis identified. Ascites: Absent Lymphadenopathy: No mesenteric, retroperitoneal or periportal lymphadenopathy. Abdominal Wall and Mesentery /retroperitoneum: There is increased mixed density measuring 3.7 cm in the left retroperitoneal area within the pelvis. There is also additional left retroperitoneal adenopathy seen just superior to this area as well as multiple enlarged left retroperitoneal lymph nodes at the region of the left kidney. There is also stranding around the left kidney. Vasculature: The visualized abdominal aorta is normal in size and caliber. Evaluation of abdominal and pelvic vessels is limited due to lack of intravenous contrast. Pelvic Organs: Unremarkable Musculoskeletal: Compression fracture of undetermined age at T9. Scattered sclerotic and lucent lesions seen throughout the vertebral bodies. Soft tissues: Unremarkable IMPRESSION: 1. Left-sided retroperitoneal adenopathy, worrisome for neoplasm, this does appear amenable to percutaneous biopsy. Clinical correlation recommended 2. Reticular nodular density seen at both lung bases, considering the retroperitoneal adenopathy, metastatic disease can not be excluded, clinical correlation recommended. 3. A few sclerotic and lucent lesions are seen within the vertebral bodies, metastatic disease not excluded. 4. Radiation optimization: All CT scans at this facility use at least one of these dose optimization techniques: automated exposure control mA and/or kV adjustment per patient size (includes targeted exams where dose is matched to clinical indication) or iterative reconstruction.
--- NOTE | 2025-10-30 17:06 | DVH ---
INDICATION: LEFT BACK PAIN TECHNIQUE: XY LUMBAR SPINE 3 VIEWXY Comparison: 10/30/2025 FINDINGS/IMPRESSION: Age indeterminate L1 compression deformity with 20% loss height. Correlate with pain symptoms. MRI lumbar spine can be obtained to further evaluate. Chronic appearing L4, L5 compression deformities with 20% loss height. Moderate multilevel disc space narrowing with endplate sclerosis. 3 mm retrolisthesis of L3 upon L4. Mild lumbar levocurvature. Atherosclerotic calcification disease. [id number] bilateral sacroiliac degenerative joint disease.
[2025-10-30] MEDS: ACETAMINOPHEN 325 MG TAB PO ONE (17:12)
[2025-10-30 17:18] LABS: Total Cells Counted 100.0 (100)
[2025-10-30 18:20] VITALS: RESP 14; O2SAT 95
[2025-10-30] MEDS: SODIUM CHLORIDE 0.9% 500 ML IV ONE ×2 (18:23→22:30)
[2025-10-30] MEDS: SODIUM CHLORIDE 0.9% 1,000 ML IV ONE (20:01)
[2025-10-30] MEDS ORDERED: DEXTROSE (50%) 50ML SYRG IV PRN (22:30)
[2025-10-30 23:21] LABS: Amphetamine Screen, Urine Neg (NEGATIVE); Barbiturate Scree,Urine Neg (NEGATIVE); Benzodiazephine Screen, Urine Neg (NEGATIVE); Cannabinoid Screen, Urine Neg (NEGATIVE); Cocaine Screen, Urine Neg (NEGATIVE); Opiate Scree,Urine Neg (NEGATIVE); Phencyclidine Screen, Urine Neg (NEGATIVE)
[2025-10-30 23:33] LABS: Iron 39.0 ug/dL (65-175)
[2025-10-30 23:37] LABS: Total Iron Binding Capacity 219.0 ug/dL (250-425)
[2025-10-30 23:40] LABS: INR 1.0 (0.9-1.15); Partial Thromboplastin Time 35.0 SEC (24.5-34.5); Prothrombin Time 10.6 sec (9.3-11.8)
[2025-10-31] VITALS (9 sets, daily range): BP systolic 101–144; BP diastolic 65–105; PULSE 65–99; RESP 16–19; TEMP 97–98.7; O2SAT 94–97
[2025-10-31] MEDS: ACETAMINOPHEN 325 MG TAB PO SCH
[2025-10-31] MEDS: HYDROcodone-ACET 5/325MG TAB PO PRN (01:02)
[2025-10-31] MEDS: FERROUS SULFATE 325mg EC TAB PO ONE (02:15)
--- NOTE | 2025-10-31 02:16 | DVHHPRES ---
History of Present Illness Resident Creating Document: ERICK CARIAS RESIDENT History of Present Illness Patient is 84-year-old male with past medical history of diabetes mellitus, hyperlipidemia, anemia who presents to the ED with chief complaints of low back pain which is 8/10 intensity, comes and goes, increased in the morning, decreased with movement and activity. Patient states he has normally active and since this 1 month has been experiencing the pain. Patient denies any dysuria, hematuria, burning sensation with urination, fever, chills, chest pain, abdominal pain, nausea, vomiting, diarrhea, falls, loss of consciousness, dizziness. PMHx: diabetes mellitus, hyperlipidemia, anemia PSHx: appendectomy Family history: reviewed, noncontributory Social history: denies smoking, drinking, drug use Home medication: glipizide, metformin, atorvastatin, insulin Allergic history: denies PCP: Dr. Knox Patient seen at bedside. patient denies any new complaints. Patient states his pain is 8/10 in intensity on the left paraspinal region. Review of Systems Constitutional: No: Fever, Chills, Sweats, Weakness, Malaise, Other Eyes: No: Pain, Vision change, Conjunctivae inflammation, Eyelid inflammation, Other, Redness ENT: No: Ear pain, Ear discharge, Nose pain, Nose discharge, Nose congestion, Mouth pain, Mouth swelling, Throat pain, Throat swelling, Other Respiratory: No: Cough, Dry, Shortness of breath, SOB with excertion, Wheezing, Hemoptysis, Pleuritic Pain, Sputum, Wheezing, Other Cardiovascular: No: Chest Pain, Palpitations, Orthopnea, Paroxysmal Noc. Dyspnea, Edema, Lt Headedness, Other Gastrointestinal: No: Nausea, Vomiting, Abdominal Pain, Diarrhea, Constipation, Melena, Hematochezia, Other Genitourinary: No Dysuria, No Frequency, No Incontinence, No Hematuria, No Retention, No Other Musculoskeletal: back pain; No: other, neck pain, shoulder pain, arm pain, hand pain, leg pain, foot pain Skin: No: Rash, Lesions, Jaundice, Bruising, Other Neurological: No: Weakness, Numbness, Incoordination, Change in speech, Confusion, Seizures, Other Allergies: Coded Allergies: NO KNOWN ALLERGIES (Unverified , 02/11/15) Medications Current Medications Medications Dose Ordered Sig/Araseli Route Start Time Stop Time Status Last Admin Dose Admin Acetaminophen/ Hydrocodone Bitart 1 tab Q6HR PRN PO 10/30/25 22:00 10/31/25 01:02 1 TAB Enoxaparin Sodium 40 mg DAILY SC 10/31/25 10:00 Acetaminophen 650 mg Q6HR PO 10/31/25 00:00 Insulin Glargine 10 units HS SC 10/31/25 22:00 Diagnostic Test (Pha) 1 strip ACHS 10/31/25 07:00 Insulin Human Regular ACHS SC 10/31/25 07:00 Dextrose 50 ml UD PRN IV 10/30/25 22:30 Exam Vital Signs Vital Signs Date Time Temp Pulse Resp B/P (MAP) Pulse Ox O2 Delivery O2 Flow Rate FiO2 10/30/25 23:00 76 18 94/52 (66) 95 10/30/25 19:30 Room Air* 0 21 10/30/25 19:30 98.1 98.1 Exam General: Patient alert and oriented in person, place and time. Patient following commands. HEENT: Normocephalic, atraumatic, moist mucous membranes Respiratory/pulmonary: Clear lungs bilaterally, vesicular murmurs present in almost all lung elias, no associated crackles or wheezes. Cardiovascular: Normal heart sounds S1 and S2 with no associated murmurs Abdomen: Left paraspinal tenderness Extremities: There is no peripheral edema present at the lower extremities. Peripheral Pulses: 3+ Radial (R). 3+ Radial (L). 3+ Dorsalis pedis (R). 3+ Dorsalis pedis(L) Skin: No rashes or pruritus, there is no sacral edema present at this time. Neurological: Intact cranial nerves with no focal neurologic deficits Labs/Xrays Labs Test 10/30/25 23:01 10/30/25 15:13 10/30/25 14:54 Range/Units Prothrombin Time 10.6 9.3-11.8 sec Prothrombin Time INR 1.00 0.9-1.15 Activated Partial Thromboplast Time 35.0 H 24.5-34.5 SEC Iron Level 39 L 65-175 ug/dL Total Iron Binding Capacity 219 L 250-425 ug/dL Percent Iron Saturation 17.8 L 20-55 % Ferritin 393.8 H 22-322 ng/mL White Blood Count 3.8 L 4.4-10.8 10^3/uL Red Blood Count 3.85 L 4.5-5.90 10^6/uL Hemoglobin 10.7 L 13.5-17.5 g/dL Hematocrit 32.5 L 41.0-53.0 % Mean Corpuscular Volume 84.4 80.0-100.0 fL Mean Corpuscular Hemoglobin 27.9 L 28.0-32.0 pg Mean Corpuscular Hemoglobin Concent 33.0 32.0-36.0 g/dL Red Cell Distribution Width 16.6 H 11.8-14.3 % Platelet Count 305 140-450 10^3/uL Mean Platelet Volume 7.1 6.9-10.8 fL Neutrophils (%) (Auto) 37.0-80.0 % Lymphocytes (%) (Auto) 10.0-50.0 % Monocytes (%) (Auto) 0.0-12.0 % Basophils (%) (Auto) 0.0-2.0 % Neutrophils # (Auto) 1.6-8.6 10 ^3/uL Lymphocytes # (Auto) 0.4-5.4 10 ^3/uL Monocytes # (Auto) 0-1.3 10 ^3/uL Differential Total Cells Counted 100.0 100 Neutrophils % (Manual) 59 37.0-80.0 Band Neutrophils % (Manual) 0 Lymphocytes % (Manual) 30 10.0-50.0 Monocytes % (Manual) 10 0-12 Eosinophils % (Manual) 1 0-7 Basophils % (Manual) 0 0.0-2.0 Metamyelocytes % (manual) 0 Myelocytes % (Manual) 0 Promyelocytes % (Manual) 0 Blast Cells % (Manual) 0 Reactive Lymphocytes 0 Platelet Estimate Adequate Sodium Level 139 136-145 mmol/L Potassium Level 3.9 3.5-5.1 mmol/L Chloride Level 102 98-107 mmol/L Carbon Dioxide Level 25 20-31 mmol/L Anion Gap 12 5-15 Blood Urea Nitrogen 23 9-23 mg/dL Creatinine 0.92 0.700-1.30 mg/dL Glomerular Filtration Rate Calc 81 >90 mL/min BUN/Creatinine Ratio 25.0 H 10.0-20.0 Serum Glucose 228 H 74-106 mg/dL Hemoglobin A1c 8.0 H <5.7 % A1C Calcium Level 8.7 8.7-10.4 mg/dL Magnesium Level 1.9 1.6-2.6 mg/dL Total Bilirubin 0.4 0.2-1.0 mg/dL Aspartate Amino Transferase (AST) 15 13-40 U/L Alanine Aminotransferase (ALT) < 9 7-40 U/L Alkaline Phosphatase 133 H 46-116 U/L Troponin I High Sensitivity < 3 L </=54 ng/L Total Protein 7.0 5.7-8.2 g/dL Albumin 3.9 3.2-4.8 g/dL Lipase 27 12-53 U/L Thyroid Stimulating Hormone (TSH) 1.06 0.55-4.78 uIU/mL Urine Color Yellow Yellow Urine Clarity Clear Clear Urine pH 6.0 5.0-9.0 Urine Specific [place] 1.029 1.001-1.035 Urine Protein 1+ H Negative Urine Ketones Trace Negative Urine Blood Negative Negative /uL Urine Nitrite Negative Negative Urine Bilirubin Negative Negative Urine Urobilinogen 2 H Negative mg/dL Urine Leukocyte Esterase Negative Negative /uL Urine RBC 2 0 - 3 /hpf Urine Microscopic WBC 1 0-3 /HPF Urine Squamous Epithelial Cells Few <5 /hpf Urine Bacteria None seen None Seen /hpf Urine Hyaline Casts Mod 0 - 2 /lpf Urine Mucus Few None Seen Urine Glucose Trace Normal mg/dL Urine Opiates Screen Neg NEGATIVE Urine Fentanyl Screen Neg NEGATIVE Urine Barbiturates Screen Neg NEGATIVE Urine Phencyclidine Screen Neg NEGATIVE Urine Amphetamines Screen Neg NEGATIVE Urine Benzodiazepines Screen Neg NEGATIVE Urine Cocaine Screen Neg NEGATIVE Urine Cannabinoids Screen Neg NEGATIVE SEPSIS Sepsis Screen Date sepsis recognized/suspect: Oct 30, 2025 Time Sepsis recognized/suspect: 1929 Recent Procedure: No On Antibiotic Therapy: No Respiratory Rate >20: Yes Heart Rate >90: No Temp<36 C (96.8 F) or >38.3 C: No SBP <90 or MAP <65 mmHG: No New Acute Mental Status Change: No Is the patient on CPAP, BIPAP,: No Physician Orders Admit (10/30/25 21:53) 2 Gm Sodium Diet (10/31/25 Breakfast) Hydrocodone-Acet 5/325mg Tab ([place] 5/32 (10/30/25 22:00) Enoxaparin Sodium (Lovenox) (10/31/25 10:00) Complete Blood Count (10/31/25 04:00) Comprehensive Metabolic Panel (10/31/25 04:00) Pt Request For Service (10/30/25 21:53) Acetaminophen Tablet (Tylenol Tablet) (10/31/25 00:00) Bedrest With Bathroom Privileg (10/30/25 21:53) Stat Ekg For Chest Pain (10/30/25 21:53) Notify Of Changes From Base (10/30/25 21:53) Rehabilitation Center Manager For 24 Hours (10/30/25 21:53) Emergency Dysrhythmia Protocol (10/30/25 21:53) Rhythm Strips Once Every Shift (10/30/25 21:53) Insulin Lantus (Glargine) (Lantus) (10/31/25 22:00) Glucose Blood (Accu-Chek Comfort Curve T (10/31/25 07:00) Insulin R (Human) (Insulin R) (10/31/25 07:00) Dextrose 50% Syringe (10/30/25 22:30) Vitamin D 25-Hydroxy D2 + D3 (10/31/25 00:13) Stool Bacterial Culture (10/31/25 01:55) Ct Chest/Ab/Pl W Con- Iv Only (10/31/25 01:55) Psa Total+% Free (10/31/25 01:55) Lipid Panel (10/31/25 02:04) Ferrous Sulfate Tablet (10/31/25 02:15) Ferrous Sulfate Tablet (10/31/25 08:00) Atorvastatin (Lipitor) (10/31/25 22:00) Vital Signs Date Time Temp Pulse Resp B/P (MAP) Pulse Ox O2 Delivery O2 Flow Rate FiO2 10/30/25 23:00 76 18 94/52 (66) 95 10/30/25 21:00 80 15 112/65 (81) 96 10/30/25 19:30 Room Air* 0 21 10/30/25 19:30 98.1 81 22 107/58 (74) 94 98.1 10/30/25 18:20 14 95 Room Air* 0 21 10/30/25 18:20 98.0 77 14 101/54 (70) 95 98.0 Laboratory Tests Test 10/30/25 15:13 White Blood Count 3.8 10^3/uL (4.4-10.8) L Medications Medications Dose Ordered Sig/Araseli Route Start Time Stop Time Status Last Admin Dose Admin Acetaminophen/ Hydrocodone Bitart 1 tab Q6HR PRN PO 10/30/25 22:00 10/31/25 01:02 1 TAB Sodium Chloride 500 ml @ 500 mls/hr Q1H ONCE IV 10/30/25 16:45 10/30/25 17:44 DC 10/30/25 18:23 500 MLS/HR Sodium Chloride 500 ml @ 500 mls/hr Q1H ONCE IV 10/30/25 22:30 10/30/25 23:29 DC 10/30/25 22:30 500 MLS/HR Sodium Chloride 1,000 ml @ 125 mls/hr Q8H ONCE IV 10/30/25 16:45 10/31/25 00:44 DC 10/30/25 20:01 125 MLS/HR Assessment/Plan Assessment/Plan Intractable lower back pain due to spinal stenosis ? pathologic bone metastasis Retrolithiasis Sacroiliac degenerative joint disease - lumbar spine x-ray showed Age indeterminate L1 compression deformity with 20% loss height. Chronic appearing L4, L5 compression deformities with 20% loss height. Moderate multilevel disc space narrowing with endplate sclerosis. 3 mm retrolisthesis of L3 upon L4. Mild lumbar levocurvature.Atherosclerotic calcification disease. [id number] bilateral sacroiliac degenerative joint disease. - check CT chest/ abdomen pelvis - pain management - PT eval Left-sided retroperitoneal adenopathy - CT abdomen showed: left-sided retroperitoneal adenopathy. Reticular nodular density seen at both lung bases, considering the retroperitoneal adenopathy, metastatic disease can not be excluded, clinical correlation recommended. A few sclerotic and lucent lesions are seen within the vertebral bodies, metastatic disease not excluded. - check CT chest/abdomen with contrast to rule out malignancy - check PSA - check stool occult blood Iron-deficiency anemia - ferrous sulfate - monitor labs Diabetes mellitus HbA1c 8 - Lantus 10, mild insulin sliding scale - Accu-Chek Hyperlipidemia -atorvastatin DVT prophylaxis: Lovenox Goals of care addressed with the patient for more than 27 minutes: Full code status Case discussed with Dr. Chun , patient and nurse Plan discussed with: Patient My Orders Orders - ERICK CARIAS RESIDENT Procedure Category Date Status Time Admit ADMIT 10/30/25 Transmitted 21:53 2 Gm Sodium Diet DIET 10/31/25 Transmitted Breakfast Hydrocodone-Acet PHA 10/30/25 In Process 5/325mg Tab ([place] 22:00 Enoxaparin Sodium PHA 10/31/25 In Process (Lovenox) 10:00 Complete Blood Count LAB 10/31/25 Logged 04:00 Comprehensive LAB 10/31/25 Logged Metabolic Panel 04:00 Pt Request For Service PT 10/30/25 Logged 21:53 Acetaminophen Tablet PHA 10/31/25 In Process (Tylenol Tablet) 00:00 Bedrest With Bathroom [facility] 10/30/25 In Process Privileg 21:53 Stat Ekg For Chest [facility] 10/30/25 In Process Pain 21:53 Notify Md Of Changes [facility] 10/30/25 In Process From Base 21:53 Rehabilitation Center Manager For [facility] 10/30/25 In Process 24 Hours 21:53 Emergency Dysrhythmia [facility] 10/30/25 In Process Protocol 21:53 Rhythm Strips Once [facility] 10/30/25 In Process Every Shift 21:53 Insulin Lantus LOCATED [facility] 10/31/25 In Process (Glargine) (Lantus) 22:00 Glucose Blood PHA 10/31/25 In Process (Accu-Chek Comfort 07:00 Insulin R (Human) PHA 10/31/25 In Process (Insulin R) 07:00 Dextrose 50% Syringe PHA 10/30/25 In Process 22:30 Vitamin D 25-Hydroxy LAB 10/31/25 Logged D2 + D3 00:13 Stool Bacterial DINESH 10/31/25 Uncollected Culture 01:55 Ct Chest/Ab/Pl W Con- CT 10/31/25 Logged Iv Only 01:55 Psa Total+% Free LAB 10/31/25 Logged 01:55 Lipid Panel LAB 10/31/25 Logged 02:04 Ferrous Sulfate Tablet PHA 10/31/25 Logged 02:15 Ferrous Sulfate Tablet PHA 10/31/25 Logged 08:00 Atorvastatin (Lipitor) PHA 10/31/25 Logged 22:00 Visit Coding STANDARD RES Billing Provider: JAMI CHUN MD Date of Service if different f: Oct 30, 2025 Common Visit Codes: 63153-ESAACDB INP/OBS CARE (HIGH) Secondary Visit Codes: 24475-[id number] CARE PLAN 30 MINUTES ERICK CARIAS Oct 31, 2025 02:16
[2025-10-31 06:18] LABS: Hematocrit 30.7 % (41.0-53.0); Hemoglobin 10.1 g/dL (13.5-17.5); Mean Corpuscular Hemoglobin 27.8 pg (28.0-32.0); Mean Corpuscular Volume 84.5 fL (80.0-100.0)
[2025-10-31] MEDS: ACCU-CHEK COMFORT CURVE STRIP VI SCH (06:29)
[2025-10-31] MEDS: InsuLIN REG 1unit/0.01ml Soln (100units/ml) SC SCH (06:30)
[2025-10-31 06:32] LABS: Albumin 3.4 g/dL (3.2-4.8); Alkaline Phosphatase 116 U/L (46-116); Anion Gap 10 (5-15); BUN/Creatinine Ratio 19.1 (10.0-20.0); Blood Urea Nitrogen 13 mg/dL (9-23); Carbon Dioxide 22 mmol/L (20-31); Chloride 106 mmol/L (98-107); Potassium 4.0 mmol/L (3.5-5.1); Sodium 138 mmol/L (136-145); Total Protein 6.1 g/dL (5.7-8.2)
[2025-10-31 06:33] LABS: Alanine Aminotransferase < 9 U/L (7-40); Bilirubin, Total 0.4 mg/dL (0.2-1.0); Calcium 8.4 mg/dL (8.7-10.4); Glucose 120 mg/dL (74-106)
[2025-10-31 07:59] LABS: Total Cells Counted 100.0 (100)
[2025-10-31 08:04] LABS: Triglycerides 101 mg/dL (< 150)
[2025-10-31 08:06] LABS: Cholesterol 123 mg/dL (< 200); HDL Cholesterol 27 mg/dL (40-59)
[2025-10-31] MEDS: FERROUS SULFATE 325mg EC TAB PO SCH (09:49)
[2025-10-31] MEDS: ENOXAPARIN SOD 40 MG/0.4 ML SYRINGE SC SCH (09:52)
--- NOTE | 2025-10-31 14:05 | DVH ---
EXAM: CT CT CHEST/AB/PL W CON- IV ONLY HISTORY: Possible metastatic cancer TECHNIQUE: Volumetric multidetector CT images of the abdomen and pelvis were obtained after the administration of intravenous contrast. All CT scans at this facility use dose modulation, iterative reconstruction, and/or weight based dosing when appropriate to reduce radiation dose to as low as reasonably achievable. COMPARISON: None FINDINGS: [LOWER CHEST]: Patchy areas of inconspicuous centrilobular ground-glass with diffuse distribution in bilateral lungs. Dominant area of peribronchovascular nodularity/thickening measuring up to 1.7 cm. Dominant measurable index pulmonary nodules measure up to 6 mm in the lateral basilar segment, right lower lobe. Consideration for pulmonary metastatic disease. The partially visualized lung bases are clear without a pleural effusion. Prominent subcarinal lymph node concerning for metastatic disease measuring 29 x 16 mm. Coronary artery calcifications. [LIVER]: Normal hepatic size without suspicious focal lesion. [GALLBLADDER AND BILIARY TREE]: No cholelithiasis. [SPLEEN]: Unremarkable. [PANCREAS]: Significant abnormal pancreatic ductal dilation with large air-fluid level and internal coarse calcification. Pancreatic duct measures up to 3.6 cm. [ADRENAL GLANDS]: Unremarkable [KIDNEYS]: No hydronephrosis. No nephroureterolithiasis. No suspicious focal lesion. [BLADDER]: Circumferential bladder wall thickening. Significant median lobe hypertrophy extending into the base of the bladder. Mass of the posterior aspect of the bladder, incompletely characterized which may be related to prostate malignancy versus bladder malignancy. [REPRODUCTIVE ORGANS]: Significant median lobe hypertrophy extending into the base of the bladder. [BOWEL/MESENTERY]: Stomach is normal. No CT evidence of bowel obstruction. [ASCITES]: Absent [LYMPHADENOPATHY]: Retroperitoneal lymphadenopathy. Left urothelial thickening/enhancement correlate for ascending urinary tract infection versus exaggeration secondary to multiple adjacent abnormal left lymphadenopathy likely coursing along the left gonadal vein. Dominant left para-aortic lymph node m easures 2.1 x 2 cm. [VASCULATURE]: No aneurysmal dilatation. [ABDOMINAL WALL]: Unremarkable. [MUSCULOSKELETAL]: Sclerosis of the right posterior iliac bone. Multiple osseous sclerotic lesions along the left acetabulum, left ischial tuberosities, visualized axial and appendicular skeleton compatible with osseous metastatic disease. Multiple associated presumed pathologic fractures associated with the fractures. Significant sclerotic lesion of T6 without associated pathologic fracture. Pathologic compression deformity and anterior vertebral body fracture plane of T9. Multifocal degenerative change of the visualized spine. IMPRESSION: 1. Significant abnormal pancreatic ductal dilation with large air-fluid level and internal coarse calcification. 2. Pancreatic duct measures up to 3.6 cm. 3. Significant median lobe hypertrophy extending into the base of the bladder. 4. Mass of the posterior aspect of the bladder, incompletely characterized which may be related to prostate malignancy versus bladder malignancy. 5. Retroperitoneal lymphadenopathy. 6. Left urothelial thickening/enhancement correlate for ascending urinary tract infection versus exaggeration secondary to multiple adjacent abnormal left lymphadenopathy likely coursing along the left gonadal vein. 7. 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 8. Patchy areas of inconspicuous centrilobular ground-glass with diffuse distribution in bilateral lungs. 9. Dominant area of peribronchovascular nodularity/thickening measuring up to 1.7 cm. 10. Dominant measurable index pulmonary nodules measure up to 6 mm in the lateral basilar segment, right lower lobe. 11. Consideration for pulmonary metastatic disease.
--- NOTE | 2025-10-31 16:59 | DVHPNRES ---
Progress Note Date Seen: Oct 31, 2025 Resident Creating Document: MG MAYER RESIDENT Medical Necessity Reason Pt with a Central, PICC or Fol: No Subjective Review of Systems Mr. Collins is an 84 year old male with PMHx of type 2 diabetes mellitus, who presented to [facility] with chief complaint of back pain. The patient states he has had mid back pain for the last month described as sharp, 7/10 at worst, nonradiating, with no aggravating or relieving factors. He denies recent trauma, fever, nausea, vomiting, urinary or fecal incontinence, constipation or diarrhea, bloody urine, chest pain, and palpitations. due to persistence and progressive worsening of back pain, the patient presented to the ED for evaluation. On evaluation in the ED, afebrile, normocardiac, normotensive, and saturating adequately on room air. Initial labs are significant for mild leukopenia, normocytic anemia, hyperglycemia, and elevated ALP. Abdominopelvic CT significant for left-sided retroperitoneal adenopathy, worrisome for neoplasm, reticular nodule density seen at both lung bases, and few sclerotic and lucent lesions observed within the vertebral bodies. Lumbar spine x-ray shows age-indeterminate L1 compression deformity with 20% loss height, chronic appearing L4, L5 compression deformities with 20% loss height, moderate multilevel disc space narrowing with endplate sclerosis, [id number] bilateral sacroiliac degenerative joint disease. The patient was admitted for further workup and monitoring. Past surgical history: Right hip replacement, appendectomy Allergies: Denies Social: Denies any previous drug, alcohol, and tobacco use Home medications: Metformin 1000 mg p.o. b.i.d. 10/31/2025: patient seen at bedside. Per nurse, no adverse events overnight to report. he is afebrile, normocardiac, normotensive, saturating adequately on room air. He states pain has improved. Due to concern of metastatic disease, PSA has been ordered and is pending. IR has been consulted for lymph node biopsy. Review of Systems: Constitutional: Denies weight loss, fever and chills. HEENT: Denies changes in vision and hearing. Respiratory: Denies shortness of breath and cough Cardiovascular: Denies chest discomfort or palpitations GI: Denies abdominal distention, abdominal pain, diarrhea : Denies dysuria and urinary frequency. Musculoskeletal: Refers localized back pain, However he states it is improved Skin: Denies rash and pruritus. Neurological: denies dizziness headache vision or hearing problems Objective vital signs Vital Sign Date Time Temp Pulse Resp B/P (MAP) Pulse Ox O2 Delivery O2 Flow Rate FiO2 10/31/25 12:39 97.6 65 17 113/66 (82) 96 97.6 10/31/25 08:00 Room Air* 0 21 Total Intake and Output 10/30/25 10/30/25 10/31/25 15:00 23:00 07:00 Intake Total 875 ml 975 ml Balance 875 ml 975 ml medications Current Medications Medications Dose Ordered Sig/Araseli Route Start Time Stop Time Status Last Admin Dose Admin Acetaminophen/ Hydrocodone Bitart 1 tab Q6HR PRN PO 10/30/25 22:00 10/31/25 01:02 1 TAB Enoxaparin Sodium 40 mg DAILY SC 10/31/25 10:00 10/31/25 09:52 40 MG Acetaminophen 650 mg Q6HR PO 10/31/25 00:00 10/31/25 06:00 650 MG Insulin Glargine 10 units HS SC 10/31/25 22:00 Diagnostic Test (Pha) 1 strip ACHS 10/31/25 07:00 10/31/25 11:30 1 STRIP Insulin Human Regular ACHS SC 10/31/25 07:00 10/31/25 11:30 2 UNITS Dextrose 50 ml UD PRN IV 10/30/25 22:30 Ferrous Sulfate 325 mg BIDWM PO 10/31/25 08:00 10/31/25 09:49 325 MG Atorvastatin Calcium 20 mg HS PO 10/31/25 22:00 Examination General: The patient alert and oriented in person place and time. Patient following commands HEENT: Normocephalic, atraumatic, normal reactive pupils, EOM intact, pink conjunctiva, pink moist mucous membrane Respiratory/pulmonary: Bilateral chest expansion, no pain on palpation of chest wall, clear lungs bilaterally, vesicular murmurs present in almost all lung elias, no associated crackles or wheezes. Back: No point tenderness on palpation of spinal column, point tenderness noted on palpation of posterior aspect of left rib 6 or 7. Cardiovascular: Normal RRR, normal S1 and S2, no murmurs Abdomen: Abdomen nondistended, normal bowel sounds, soft, there is no pain to palpation in any of the abdominal quadrants, no palpable masses. Extremities: No deformities, there is no peripheral edema present at the lower extremities, normal pulses Skin: No rashes or pruritus, there is no sacral edema present at this time. Neurological: Intact cranial nerves with no focal neurologic deficits laboratory and microbiology Laboratory Tests 10/31/25 05:05 Test 10/31/25 05:05 Range/Units Serum Glucose 120 #H 74-106 mg/dL Problem List/Assessment/Plan Problem List/Assessment/Plan Assessment and Plan: Intractable back pain possibly due to possible bone metastases Possible prostate vs bladder malignancy - CT abdomen pelvis without contrast: Left-sided retroperitoneal adenopathy, worrisome for neoplasm, this does not appear amenable to percutaneous biopsy. Reticular nodule density seen at both lung bases, considering the retroperitoneal adenopathy, metastatic disease can not be excluded. A few sclerotic and lucent lesions are seen within the vertebral bodies, metastatic disease can not be excluded. - CT abdomen chest pelvis with contrast: Significant abnormal pancreatic duct dilation with large air-fluid level and internal coarse calcification, pancreatic duct measures up to 3.6 cm, significant median lobe hypertrophy extending into the base of the bladder, mass of the posterior aspect of the bladder, incompletely characterized which may be related to prostate malignancy versus bladder malignancy, retroperitoneal lymphadenopathy, left urothelial thickening, correlate for ascending UTI versus exaggeration secondary to multiple adjacent abnormal left lymphadenopathy likely coursing along the left gonadal vein, 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 - [place] 5/325 mg p.o. q.6 hours PRN - Acetaminophen 650 mg p.o. q.6 hours - PSA pending - Consulted for biopsy of retroperitoneal lymph nodes Questionable pulmonary metastatic disease - Prominent area of peribronchovascular dularity thickening measuring up to 1.7 cm - Dominant measurable index pulmonary nodules measure up to 6 mm in the lateral basilar segment, right lower lobe - Consideration for pulmonary metastatic disease Iron deficiency anemia - Monitor H and H - Ferrous sulfate Type 2 diabetes mellitus with hyperglycemia, HbA1c 8 - Lantus 10 unites SC HS - SSI - Accu-cheks - Carbohydrate consistent diet Hyperlipidemia - Atorvastatin 40 mg PO daily Nutrition: Carbohydrate consistent diet DVT prophylaxis: Lovenox 40mg SC daily GI prophylaxis: Goals of care discussed with the patient and his at bedside for over 30 minutes. FULL CODE. Case discussed with Dr. Chun Plan discussed with: Patient, Spouse, Other (Nurse) My Orders My Orders Orders - MAYER,[place] RESIDENT Procedure Category Date Status Time * Radiologist Consult CONS 10/31/25 Transmitted 12:58 Visit Coding STANDARD RES Billing Provider: JAMI CHUN MD Date of Service if different f: Oct 31, 2025 Common Visit Codes: [id number] INP/OBS CARE(MOD) MG MAYER RESIDENT Oct 31, 2025 16:59
[2025-10-31] MEDS: ATORVASTATIN 20 MG TAB PO SCH (21:34)
[2025-10-31] MEDS: INSULIN LANTUS (GLARGINE) 1 /0.01ml (100units/ml) SC SCH (21:46)
[2025-10-31] MEDS: IOHEXOL 300 MG/ML 100ML BOTTLE IJ ONE (21:47)
[2025-11-01] VITALS (9 sets, daily range): BP systolic 114–142; BP diastolic 69–77; PULSE 73–87; RESP 15–19; TEMP 96.3–98; O2SAT 92–97
[2025-11-01 08:08] LABS: Prostate Specific Antigen 832.0 ng/mL (0.0-4.0)
[2025-11-01 09:46] LABS: Chloride 100 mmol/L (98-107); Potassium 4.2 mmol/L (3.5-5.1); Sodium 136 mmol/L (136-145)
[2025-11-01 09:47] LABS: Anion Gap 10 (5-15); Calcium 8.9 mg/dL (8.7-10.4); Carbon Dioxide 26 mmol/L (20-31)
[2025-11-01 09:50] LABS: Hematocrit 31.9 % (41.0-53.0); Hemoglobin 10.4 g/dL (13.5-17.5); Mean Corpuscular Hemoglobin 27.3 pg (28.0-32.0); Mean Corpuscular Volume 83.5 fL (80.0-100.0); Nucleated Red Blood Cells % 0.0 %
[2025-11-01 09:52] LABS: BUN/Creatinine Ratio 15.0 (10.0-20.0); Blood Urea Nitrogen 12 mg/dL (9-23); Glucose 185 mg/dL (74-106)
--- NOTE | 2025-11-01 11:15 | DVHPNRES ---
Progress Note Date Seen: Nov 01, 2025 Resident Creating Document: MG MAYER RESIDENT Medical Necessity Reason Pt with a Central, PICC or Fol: No Subjective Review of Systems Mr. Collins is an 84 year old male with PMHx of type 2 diabetes mellitus, who presented to [facility] with chief complaint of back pain. The patient states he has had mid back pain for the last month described as sharp, 7/10 at worst, nonradiating, with no aggravating or relieving factors. He denies recent trauma, fever, nausea, vomiting, urinary or fecal incontinence, constipation or diarrhea, bloody urine, chest pain, and palpitations. due to persistence and progressive worsening of back pain, the patient presented to the ED for evaluation. On evaluation in the ED, afebrile, normocardiac, normotensive, and saturating adequately on room air. Initial labs are significant for mild leukopenia, normocytic anemia, hyperglycemia, and elevated ALP. Abdominopelvic CT significant for left-sided retroperitoneal adenopathy, worrisome for neoplasm, reticular nodule density seen at both lung bases, and few sclerotic and lucent lesions observed within the vertebral bodies. Lumbar spine x-ray shows age-indeterminate L1 compression deformity with 20% loss height, chronic appearing L4, L5 compression deformities with 20% loss height, moderate multilevel disc space narrowing with endplate sclerosis, [id number] bilateral sacroiliac degenerative joint disease. The patient was admitted for further workup and monitoring. Past surgical history: Right hip replacement, appendectomy Allergies: Denies Social: Denies any previous drug, alcohol, and tobacco use Home medications: Metformin 1000 mg p.o. b.i.d. 11/01/2025: Patient seen at bedside. Per nurse, no adverse events overnight reported. He is afebrile, normocardiac, normotensive, saturating adequately on room air. pain has improved. total PSA and free PSA are elevated. CEA and CA 19 9 are unremarkable. The patient will go for lymph node biopsy with IR on Monday. Objective vital signs Vital Sign Date Time Temp Pulse Resp B/P (MAP) Pulse Ox O2 Delivery O2 Flow Rate FiO2 11/01/25 09:00 73 16 114/69 (84) 95 11/01/25 08:00 Room Air* 0 21 11/01/25 05:00 98.0 98.0 Total Intake and Output 10/31/25 10/31/25 11/01/25 15:00 23:00 07:00 Intake Total 1295 ml 495 ml Output Total 350 ml Balance 1295 ml 145 ml medications Current Medications Medications Dose Ordered Sig/Araseli Route Start Time Stop Time Status Last Admin Dose Admin Acetaminophen/ Hydrocodone Bitart 1 tab Q6HR PRN PO 10/30/25 22:00 10/31/25 01:02 1 TAB Enoxaparin Sodium 40 mg DAILY SC 10/31/25 10:00 11/01/25 09:24 40 MG Acetaminophen 650 mg Q6HR PO 10/31/25 00:00 11/01/25 06:20 650 MG Insulin Glargine 10 units HS SC 10/31/25 22:00 10/31/25 21:46 10 UNITS Diagnostic Test (Pha) 1 strip ACHS 10/31/25 07:00 11/01/25 06:20 1 STRIP Insulin Human Regular ACHS SC 10/31/25 07:00 10/31/25 11:30 2 UNITS Dextrose 50 ml UD PRN IV 10/30/25 22:30 Ferrous Sulfate 325 mg BIDWM PO 10/31/25 08:00 11/01/25 09:24 325 MG Atorvastatin Calcium 20 mg HS PO 10/31/25 22:00 10/31/25 21:34 20 MG Examination General: The patient alert and oriented in person place and time. Patient following commands HEENT: Normocephalic, atraumatic, normal reactive pupils, EOM intact, pink conjunctiva, pink moist mucous membrane Respiratory/pulmonary: Bilateral chest expansion, no pain on palpation of chest wall, clear lungs bilaterally, vesicular murmurs present in almost all lung elias, no associated crackles or wheezes. Back: No point tenderness on palpation of spinal column, point tenderness noted on palpation of posterior aspect of left rib 8. Cardiovascular: Normal RRR, normal S1 and S2, no murmurs Abdomen: Abdomen nondistended, normal bowel sounds, soft, there is no pain to palpation in any of the abdominal quadrants, no palpable masses. Extremities: No deformities, there is no peripheral edema present at the lower extremities, normal pulses Skin: No rashes or pruritus, there is no sacral edema present at this time. Neurological: Intact cranial nerves with no focal neurologic deficits laboratory and microbiology Laboratory Tests 11/01/25 09:17 Test 11/01/25 09:17 Range/Units Serum Glucose 185 H 74-106 mg/dL Problem List/Assessment/Plan Problem List/Assessment/Plan Assessment and Plan: Intractable back pain possibly due to possible bone metastases Possible prostate vs bladder malignancy - CT abdomen pelvis without contrast: Left-sided retroperitoneal adenopathy, worrisome for neoplasm, this does not appear amenable to percutaneous biopsy. Reticular nodule density seen at both lung bases, considering the retroperitoneal adenopathy, metastatic disease can not be excluded. A few sclerotic and lucent lesions are seen within the vertebral bodies, metastatic disease can not be excluded. - CT abdomen chest pelvis with contrast: Significant abnormal pancreatic duct dilation with large air-fluid level and internal coarse calcification, pancreatic duct measures up to 3.6 cm, significant median lobe hypertrophy extending into the base of the bladder, mass of the posterior aspect of the bladder, incompletely characterized which may be related to prostate malignancy versus bladder malignancy, retroperitoneal lymphadenopathy, left urothelial thickening, correlate for ascending UTI versus exaggeration secondary to multiple adjacent abnormal left lymphadenopathy likely coursing along the left gonadal vein, 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 - [place] 5/325 mg p.o. q.6 hours PRN - Acetaminophen 650 mg p.o. q.6 hours - Total PSA: 832 - Free PSA: > 50 -- % Free PSA: > 6 - Consulted for biopsy of retroperitoneal lymph nodes Questionable pulmonary metastatic disease - Prominent area of peribronchovascular dularity thickening measuring up to 1.7 cm - Dominant measurable index pulmonary nodules measure up to 6 mm in the lateral basilar segment, right lower lobe - Consideration for pulmonary metastatic disease Iron deficiency anemia - Monitor H and H - Ferrous sulfate Type 2 diabetes mellitus with hyperglycemia, HbA1c 8 - Lantus 10 unites SC HS - SSI - Accu-cheks - Carbohydrate consistent diet Hyperlipidemia - Atorvastatin 40 mg PO daily Nutrition: Carbohydrate consistent diet DVT prophylaxis: Lovenox 40mg SC daily GI prophylaxis: Not indicated Goals of care discussed with the patient and his at bedside for over 24 minutes. FULL CODE. Case discussed with Dr. Gibbs Plan discussed with: Patient, Son, Other (Nurse) My Orders My Orders Orders - MG MAYER RESIDENT Procedure Category Date Status Time * Radiologist Consult CONS 10/31/25 Transmitted 12:58 Visit Coding STANDARD RES Billing Provider: WILL GIBBS DO Date of Service if different f: Nov 01, 2025 Common Visit Codes: 76730-[id number] INP/OBS CARE(MOD) MORENOBANCO RESIDENT Nov 01, 2025 11:15
[2025-11-02] VITALS (7 sets, daily range): BP systolic 95–137; BP diastolic 51–81; PULSE 74–98; RESP 16–19; TEMP 97.1–98.4; O2SAT 94–98
--- NOTE | 2025-11-02 15:07 | DVHPNRES ---
Progress Note Date Seen: Nov 02, 2025 Resident Creating Document: SALLY COTO RESIDENT Medical Necessity Reason Pt with a Central, PICC or Fol: No Subjective Review of Systems Mr. Collins is an 84 year old male with PMHx of type 2 diabetes mellitus, who presented to [facility] with chief complaint of back pain. The patient states he has had mid back pain for the last month described as sharp, 7/10 at worst, nonradiating, with no aggravating or relieving factors. He denies recent trauma, fever, nausea, vomiting, urinary or fecal incontinence, constipation or diarrhea, bloody urine, chest pain, and palpitations. due to persistence and progressive worsening of back pain, the patient presented to the ED for evaluation. On evaluation in the ED, afebrile, normocardiac, normotensive, and saturating adequately on room air. Past surgical history: Right hip replacement, appendectomy Allergies: Denies Social: Denies any previous drug, alcohol, and tobacco use PCP: Ritesh Hinton Home medications: Metformin . Baclofen, atorvastatin, cyclobenzaprine. Patient seen and evaluated in bedside today. Patient back pain significantly improving. Possible IR guided biopsy tomorrow. Patient in bedside and discussed management plan and verbally agree vertebral discussed. NPO midnight and hold Lovenox. Objective vital signs Vital Sign Date Time Temp Pulse Resp B/P (MAP) Pulse Ox O2 Delivery O2 Flow Rate FiO2 11/02/25 12:18 98.4 11/02/25 09:00 98 16 95/61 (72) 94 11/02/25 08:00 Room Air* 0 21 Total Intake and Output 11/01/25 11/01/25 11/02/25 15:00 23:00 07:00 Intake Total 600 ml 200 ml Output Total 300 ml Balance 300 ml 200 ml medications Current Medications Medications Dose Ordered Sig/Araseli Route Start Time Stop Time Status Last Admin Dose Admin Acetaminophen/ Hydrocodone Bitart 1 tab Q6HR PRN PO 10/30/25 22:00 10/31/25 01:02 1 TAB Enoxaparin Sodium 40 mg DAILY SC 10/31/25 10:00 11/02/25 08:54 40 MG Acetaminophen 650 mg Q6HR PO 10/31/25 00:00 11/02/25 12:18 650 MG Insulin Glargine 10 units HS SC 10/31/25 22:00 11/01/25 21:55 10 UNITS Diagnostic Test (Pha) 1 strip ACHS 10/31/25 07:00 11/02/25 11:30 1 STRIP Insulin Human Regular ACHS SC 10/31/25 07:00 11/02/25 12:35 6 UNITS Dextrose 50 ml UD PRN IV 10/30/25 22:30 Ferrous Sulfate 325 mg BIDWM PO 10/31/25 08:00 11/02/25 08:53 325 MG Atorvastatin Calcium 20 mg HS PO 10/31/25 22:00 11/01/25 21:49 20 MG Examination General: The patient alert and oriented in person place and time. Patient following commands HEENT: Normocephalic, atraumatic, normal reactive pupils, EOM intact, pink conjunctiva, pink moist mucous membrane Respiratory/pulmonary: Bilateral chest expansion, no pain on palpation of chest wall, clear lungs bilaterally Back: point tenderness noted on palpation of posterior aspect of left rib . Cardiovascular: Normal RRR, normal S1 and S2, no murmurs Abdomen: Abdomen nondistended, normal bowel sounds, soft, there is no pain to palpation in any of the abdominal quadrants, no palpable masses. Extremities: No deformities, there is no peripheral edema present at the lower extremities, normal pulses Skin: No rashes or pruritus, there is no sacral edema present at this time. 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 - CT abdomen pelvis without contrast: Left-sided retroperitoneal adenopathy, worrisome for neoplasm, this does not appear amenable to percutaneous biopsy. Reticular nodule density seen at both lung bases, considering the retroperitoneal adenopathy, metastatic disease can not be excluded. A few sclerotic and lucent lesions are seen within the vertebral bodies, metastatic disease can not be excluded. - CT abdomen chest pelvis with contrast: Significant abnormal pancreatic duct dilation with large air-fluid level and internal coarse calcification, pancreatic duct measures up to 3.6 cm, significant median lobe hypertrophy extending into the base of the bladder, mass of the posterior aspect of the bladder, incompletely characterized which may be related to prostate malignancy versus bladder malignancy, retroperitoneal lymphadenopathy, left urothelial thickening, correlate for ascending UTI versus exaggeration secondary to multiple adjacent abnormal left lymphadenopathy likely coursing along the left gonadal vein, 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 - [place] 5/325 mg p.o. q.6 hours PRN - Acetaminophen 650 mg p.o. q.6 hours - Total PSA: 832 - Free PSA: > 50 - % Free PSA: > 6 -CEA 0.99 -CA 19- 9 antigen 21 - IR Consult for biopsy of retroperitoneal lymph nodes. Questionable pulmonary metastatic disease Peribronchovascular nodularity/thickening - Prominent area of peribronchovascular dularity thickening measuring up to 1.7 cm - Dominant measurable index pulmonary nodules measure up to 6 mm in the lateral basilar segment, right lower lobe - Consideration for pulmonary metastatic disease, outpatient pulmonary follow-up Anemia of chronic disease Iron 39, TIBC 219, % saturation 17.8, ferritin 393.8 - Monitor H and H - pantoprazole for GI prophylaxis -no signs symptoms of active bleeding Pancreatic ductal dilatation -Serum lipase level 27 -CA 19-9 and does not 21 -Monitor Type 2 diabetes mellitus with hyperglycemia, -HbA1c 8.0 - Lantus 10 unites SC HS - SSI - Accu-cheks - Carbohydrate consistent diet Hyperlipidemia Elevated alkaline phosphatase - Atorvastatin 40 mg PO daily Nutrition: Carbohydrate consistent diet DVT prophylaxis: Lovenox 40mg SC daily GI prophylaxis: Pantoprazole Goals of care discussed . More than 23 minute spent with patient. in bedside. Full code status. Case discussed with Dr. Gibbs Plan discussed with: Patient, Spouse, Other (Nurse) Visit Coding STANDARD RES Billing Provider: WILL GIBBS DO Date of Service if different f: Nov 02, 2025 Common Visit Codes: 58099-[id number] INP/OBS CARE(MOD) Secondary Visit Codes: 34928-XOMASEON CARE PLAN 30 MINUTES SALLY COTO RESIDENT Nov 02, 2025 15:07
[2025-11-02] MEDS: PANTOPRAZOLE 40 MG TAB PO ONE (15:34)
[2025-11-03 01:07] VITALS: BP 115/69; PULSE 77; RESP 18; TEMP 97.6; O2SAT 94
[2025-11-03 04:37] VITALS: BP 109/66; PULSE 83; RESP 16; TEMP 98.2; O2SAT 93
[2025-11-03] MEDS: PANTOPRAZOLE 40 MG TAB PO SCH (05:36)
[2025-11-03 07:35] LABS: Hematocrit 32.6 % (41.0-53.0); Hemoglobin 11.0 g/dL (13.5-17.5); Mean Corpuscular Hemoglobin 27.8 pg (28.0-32.0); Mean Corpuscular Volume 82.6 fL (80.0-100.0); Nucleated Red Blood Cells % 0.0 %
[2025-11-03 07:39] LABS: Chloride 100 mmol/L (98-107); Potassium 4.2 mmol/L (3.5-5.1); Sodium 138 mmol/L (136-145)
[2025-11-03 07:40] LABS: Anion Gap 12 (5-15); Calcium 9.1 mg/dL (8.7-10.4); Carbon Dioxide 26 mmol/L (20-31)
[2025-11-03 07:45] LABS: BUN/Creatinine Ratio 17.3 (10.0-20.0); Blood Urea Nitrogen 14 mg/dL (9-23); Glucose 102 mg/dL (74-106)
[2025-11-03 08:00] VITALS: PULSE 86; RESP 18; O2SAT 96
[2025-11-03 09:00] VITALS: BP 137/44; PULSE 86; RESP 18; TEMP 98; O2SAT 96
[2025-11-03] MEDS: LIDOCAINE 2%HCL (LOCAL ANESTH.) INJ 10ml MDV ONE (09:47)
[2025-11-03] MEDS: MIDAZOLAM HCL 2MG/2ML 2ml VIAL (1mg/ml) ONE (10:04)
[2025-11-03] MEDS: fentaNYL CITRATE 100 MCG/2 ML VL ONE (10:04)
--- NOTE | 2025-11-03 11:15 | DVH ---
CT ABDOMEN WITHOUT CONTRAST, HISTORY: Retroperitoneal lymphadenopathy CT guided biopsy. PROCEDURE: Informed consent was obtained. The patient was placed prone on the CT scanner. A limited localization CT scan of the abdomen was obtained. The skin overlying the lesion was prepped with chlorhexidine which was allowed to dry and draped in sterile fashion. Time out was performed. The skin and soft tissues were infiltrated with Xylocaine, and IV fentanyl was administered. With intermittent CT guidance, a 17 gauge [place] outer coaxial guiding needle was advanced into the retroperitoneal lymphadenopathy. The needle position was confirmed with CT scan. Multiple core biopsies were obtained using Tem[place] inner 18 gauge biopsy needle. The specimens were sent in formalin to pathology and in RPMI to clinical lab for analysis. The needle was withdrawn, and post procedural CT obtained through the biopsy region. No immediate complication was identifiedwas noted, and patient was transport to recovery in stable condition. DLP = 1412 mGy-cm. FINDINGS: Limited CT scan demonstrates retroperitoneal lymphadenopathy. No significant post biopsy hemorrhage is noted. IMPRESSION/PLAN: CT guided retroperitoneal lymphadenopathy biopsy. Pathology results pending.
[2025-11-03 13:00] VITALS: BP 114/72; PULSE 86; RESP 18; TEMP 97.5; O2SAT 94
[2025-11-03 13:07] LABS: Vitamin D-2 25-Hydroxy <1.0 ng/mL (.); Vitamin D-3 25-Hydroxy 21 ng/mL (.)
--- NOTE | 2025-11-03 15:33 | DVHPNRES ---
Progress Note Date Seen: Nov 03, 2025 Resident Creating Document: MG MAYER RESIDENT Medical Necessity Reason Pt with a Central, PICC or Fol: No Subjective Review of Systems Mr. Collins is an 84 year old male with PMHx of type 2 diabetes mellitus, who presented to [facility] with chief complaint of back pain. The patient states he has had mid back pain for the last month described as sharp, 7/10 at worst, nonradiating, with no aggravating or relieving factors. He denies recent trauma, fever, nausea, vomiting, urinary or fecal incontinence, constipation or diarrhea, bloody urine, chest pain, and palpitations. due to persistence and progressive worsening of back pain, the patient presented to the ED for evaluation. On evaluation in the ED, afebrile, normocardiac, normotensive, and saturating adequately on room air. Initial labs are significant for mild leukopenia, normocytic anemia, hyperglycemia, and elevated ALP. Abdominopelvic CT significant for left-sided retroperitoneal adenopathy, worrisome for neoplasm, reticular nodule density seen at both lung bases, and few sclerotic and lucent lesions observed within the vertebral bodies. Lumbar spine x-ray shows age-indeterminate L1 compression deformity with 20% loss height, chronic appearing L4, L5 compression deformities with 20% loss height, moderate multilevel disc space narrowing with endplate sclerosis, [id number] bilateral sacroiliac degenerative joint disease. The patient was admitted for further workup and monitoring. Past surgical history: Right hip replacement, appendectomy Allergies: Denies Social: Denies any previous drug, alcohol, and tobacco use Home medications: Metformin 1000 mg p.o. b.i.d. 11/03/2025: Patient seen at bedside. Per nurse, no adverse events overnight reported. He is afebrile, normocardic, normotensive, saturating adequately on room air. Patient underwent retroperitoneal biopsy today, discharge tomorrow. Objective vital signs Vital Sign Date Time Temp Pulse Resp B/P (MAP) Pulse Ox O2 Delivery O2 Flow Rate FiO2 11/03/25 13:00 97.5 86 18 114/72 (86) 94 97.5 11/03/25 08:00 Room Air* 0 21 Total Intake and Output 11/02/25 11/02/25 11/03/25 15:00 23:00 07:00 Intake Total 555 ml 480 ml Balance 555 ml 480 ml medications Current Medications Medications Dose Ordered Sig/Araseli Route Start Time Stop Time Status Last Admin Dose Admin Acetaminophen/ Hydrocodone Bitart 1 tab Q6HR PRN PO 10/30/25 22:00 10/31/25 01:02 1 TAB Enoxaparin Sodium 40 mg DAILY SC 10/31/25 10:00 11/02/25 08:54 40 MG Acetaminophen 650 mg Q6HR PO 10/31/25 00:00 11/03/25 13:00 650 MG Insulin Glargine 10 units HS SC 10/31/25 22:00 11/02/25 21:35 10 UNITS Diagnostic Test (Pha) 1 strip ACHS 10/31/25 07:00 11/03/25 11:56 1 STRIP Insulin Human Regular ACHS SC 10/31/25 07:00 11/02/25 21:25 4 UNITS Dextrose 50 ml UD PRN IV 10/30/25 22:30 Atorvastatin Calcium 20 mg HS PO 10/31/25 22:00 11/02/25 20:55 20 MG Pantoprazole Sodium 40 mg DAILY@0600 PO 11/03/25 06:00 Examination General: The patient alert and oriented in person place and time. Patient following commands HEENT: Normocephalic, atraumatic, normal reactive pupils, EOM intact, pink conjunctiva, pink moist mucous membrane Respiratory/pulmonary: Bilateral chest expansion, no pain on palpation of chest wall, clear lungs bilaterally, vesicular murmurs present in almost all lung elias, no associated crackles or wheezes. Back: No point tenderness on palpation of spinal column, point tenderness noted on palpation of posterior aspect of left rib 8 Cardiovascular: Normal RRR, normal S1 and S2, no murmurs Abdomen: Abdomen nondistended, normal bowel sounds, soft, there is no pain to palpation in any of the abdominal quadrants, no palpable masses. Extremities: No deformities, there is no peripheral edema present at the lower extremities, normal pulses Skin: No rashes or pruritus, there is no sacral edema present at this time. Neurological: Intact cranial nerves with no focal neurologic deficits laboratory and microbiology Laboratory Tests 11/03/25 06:45 Test 11/03/25 06:45 Range/Units Serum Glucose 102 74-106 mg/dL Problem List/Assessment/Plan Problem List/Assessment/Plan Assessment and Plan: Intractable back pain possibly due to possible bone metastases Possible prostate vs bladder malignancy - CT abdomen pelvis without contrast: Left-sided retroperitoneal adenopathy, worrisome for neoplasm, this does not appear amenable to percutaneous biopsy. Reticular nodule density seen at both lung bases, considering the retroperitoneal adenopathy, metastatic disease can not be excluded. A few sclerotic and lucent lesions are seen within the vertebral bodies, metastatic disease can not be excluded. - CT abdomen chest pelvis with contrast: Significant abnormal pancreatic duct dilation with large air-fluid level and internal coarse calcification, pancreatic duct measures up to 3.6 cm, significant median lobe hypertrophy extending into the base of the bladder, mass of the posterior aspect of the bladder, incompletely characterized which may be related to prostate malignancy versus bladder malignancy, retroperitoneal lymphadenopathy, left urothelial thickening, correlate for ascending UTI versus exaggeration secondary to multiple adjacent abnormal left lymphadenopathy likely coursing along the left gonadal vein, 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 - [place] 5/325 mg p.o. q.6 hours PRN - Acetaminophen 650 mg p.o. q.6 hours - Total PSA: 832 - Free PSA: > 50 -- % Free PSA: > 6 - Lymph node biopsy today Questionable pulmonary metastatic disease - Prominent area of peribronchovascular dularity thickening measuring up to 1.7 cm - Dominant measurable index pulmonary nodules measure up to 6 mm in the lateral basilar segment, right lower lobe - Consideration for pulmonary metastatic disease Iron deficiency anemia - Monitor H and H - Ferrous sulfate Type 2 diabetes mellitus with hyperglycemia, HbA1c 8 - Lantus 10 unites SC HS - SSI - Accu-cheks - Carbohydrate consistent diet Hyperlipidemia - Atorvastatin 40 mg PO daily Nutrition: Carbohydrate consistent diet DVT prophylaxis: Lovenox 40mg SC daily GI prophylaxis: Not indicated Goals of care discussed with the patient and his at bedside for over 21 minutes. FULL CODE. Case discussed with Dr. Chun Plan discussed with: Patient, Spouse, Other (Nurse) My Orders My Orders Orders - MG MAYER Procedure Category Date Status Time Pt Request For Service PT 11/03/25 Logged 13:24 Dme: Rey PARSONS 11/03/25 Transmitted 15:26 Visit Coding STANDARD RES Billing Provider: JAMI CHUN MD Date of Service if different f: Nov 03, 2025 MG MAYER Nov 03, 2025 15:33
[2025-11-03] MEDS ORDERED: INSUINJ37 SC (17:04)
[2025-11-03] MEDS ORDERED: IBUP-1455 PO (17:06)
[2025-11-03] MEDS ORDERED: FAMO20TA10 PO (17:06)
--- NOTE | 2025-11-03 17:13 | DVHDSRES ---
Discharge Summary Date of Admission Resident Creating Document: MG MARTÍNEZ RESIDENT Oct 30, 2025 at 21:53 Date of Discharge: Nov 03, 2025 Admitting Diagnosis Intractable back pain Wounds: No wounds Labs/Diagnostic Data: Laboratory Results Test 11/03/25 16:44 11/03/25 06:45 10/31/25 09:55 10/31/25 05:05 POC Glucose 286 mg/dl (70-106) White Blood Count 7.5 10^3/uL (4.4-10.8) Red Blood Count 3.94 10^6/uL (4.5-5.90) Hemoglobin 11.0 g/dL (13.5-17.5) Hematocrit 32.6 % (41.0-53.0) Mean Corpuscular Volume 82.6 fL (80.0-100.0) Mean Corpuscular Hemoglobin 27.8 pg (28.0-32.0) Mean Corpuscular Hemoglobin Concent 33.7 g/dL (32.0-36.0) Red Cell Distribution Width 16.6 % (11.8-14.3) Platelet Count 275 10^3/uL (140-450) Mean Platelet Volume 7.2 fL (6.9-10.8) Neutrophils (%) (Auto) 78.5 % (37.0-80.0) Lymphocytes (%) (Auto) 11.7 % (10.0-50.0) Monocytes (%) (Auto) 7.5 % (0.0-12.0) Eosinophils (%) (Auto) 1.8 % (0.0-7.0) Basophils (%) (Auto) 0.5 % (0.0-2.0) Neutrophils # (Auto) 5.9 10 ^3/uL (1.6-8.6) Lymphocytes # (Auto) 0.9 10 ^3/uL (0.4-5.4) Monocytes # (Auto) 0.6 10 ^3/uL (0-1.3) Eosinophils # (Auto) 0.1 10 ^3/uL (0-0.8) Basophils # (Auto) 0 10 ^3/uL (0-0.2) Nucleated Red Blood Cells 0.0 % Sodium Level 138 mmol/L (136-145) Potassium Level 4.2 mmol/L (3.5-5.1) Chloride Level 100 mmol/L (98-107) Carbon Dioxide Level 26 mmol/L (20-31) Anion Gap 12 (5-15) Blood Urea Nitrogen 14 mg/dL (9-23) Creatinine 0.81 mg/dL (0.700-1.30) Glomerular Filtration Rate Calc 86 mL/min (>90) BUN/Creatinine Ratio 17.3 (10.0-20.0) Serum Glucose 102 mg/dL (74-106) Calcium Level 9.1 mg/dL (8.7-10.4) CA 19-9 Antigen 21 U/mL (0-35) Free Prostate Specific Antigen >50.00 ng/mL (N/A) Percent Free Prostate Specific Ag >6.0 % (.) Prostate Specific Antigen Total 832.0 ng/mL (0.0-4.0) Vitamin D 25-Hydroxy 21 ng/mL (.) 25-Hydroxy Vitamin D2 <1.0 ng/mL (.) 25-Hydroxy Vitamin D3 21 ng/mL (.) Differential Total Cells Counted 100.0 (100) Neutrophils % (Manual) 52 (37.0-80.0) Band Neutrophils % (Manual) 1 Lymphocytes % (Manual) 38 (10.0-50.0) Monocytes % (Manual) 8 (0-12) Eosinophils % (Manual) 1 (0-7) Basophils % (Manual) 0 (0.0-2.0) Metamyelocytes % (manual) 0 Myelocytes % (Manual) 0 Promyelocytes % (Manual) 0 Blast Cells % (Manual) 0 Reactive Lymphocytes 0 Platelet Estimate Adequate Total Bilirubin 0.4 mg/dL (0.2-1.0) Aspartate Amino Transferase (AST) 14 U/L (13-40) Alanine Aminotransferase (ALT) < 9 U/L (7-40) Alkaline Phosphatase 116 U/L (46-116) Total Protein 6.1 g/dL (5.7-8.2) Albumin 3.4 g/dL (3.2-4.8) Triglycerides Level 101 mg/dL (< 150) Cholesterol Level 123 mg/dL (< 200) LDL Cholesterol 80 mg/dL (< 100) HDL Cholesterol 27 mg/dL (40-59) Carcinoembryonic Antigen 0.99 ng/mL (<=5.0) Test 10/30/25 23:01 10/30/25 15:13 10/30/25 14:54 Prothrombin Time 10.6 sec (9.3-11.8) Prothrombin Time INR 1.00 (0.9-1.15) Activated Partial Thromboplast Time 35.0 SEC (24.5-34.5) Iron Level 39 ug/dL (65-175) Total Iron Binding Capacity 219 ug/dL (250-425) Percent Iron Saturation 17.8 % (20-55) Ferritin 393.8 ng/mL (22-322) Hemoglobin A1c 8.0 % A1C (<5.7) Magnesium Level 1.9 mg/dL (1.6-2.6) Troponin I High Sensitivity < 3 ng/L (</=54) Lipase 27 U/L (12-53) Thyroid Stimulating Hormone (TSH) 1.06 uIU/mL (0.55-4.78) Urine Color Yellow (Yellow) Urine Clarity Clear (Clear) Urine pH 6.0 (5.0-9.0) Urine Specific [place] 1.029 (1.001-1.035) Urine Protein 1+ (Negative) Urine Ketones Trace (Negative) Urine Blood Negative /uL (Negative) Urine Nitrite Negative (Negative) Urine Bilirubin Negative (Negative) Urine Urobilinogen 2 mg/dL (Negative) Urine Leukocyte Esterase Negative /uL (Negative) Urine RBC 2 /hpf (0 - 3) Urine Microscopic WBC 1 /HPF (0-3) Urine Squamous Epithelial Cells Few /hpf (<5) Urine Bacteria None seen /hpf (None Seen) Urine Hyaline Casts Mod /lpf (0 - 2) Urine Mucus Few (None Seen) Urine Glucose Trace mg/dL (Normal) Urine Opiates Screen Neg (NEGATIVE) Urine Fentanyl Screen Neg (NEGATIVE) Urine Barbiturates Screen Neg (NEGATIVE) Urine Phencyclidine Screen Neg (NEGATIVE) Urine Amphetamines Screen Neg (NEGATIVE) Urine Benzodiazepines Screen Neg (NEGATIVE) Urine Cocaine Screen Neg (NEGATIVE) Urine Cannabinoids Screen Neg (NEGATIVE) Other Laboratory Tests 11/03/25 06:45 Brief Hx & Hospital Course: Mr. Collins is an 84 year old male with PMHx of type 2 diabetes mellitus, who presented to [facility] with chief complaint of back pain. The patient states he has had mid back pain for the last month described as sharp, 7/10 at worst, nonradiating, with no aggravating or relieving factors. He denies recent trauma, fever, nausea, vomiting, urinary or fecal incontinence, constipation or diarrhea, bloody urine, chest pain, and palpitations. due to persistence and progressive worsening of back pain, the patient presented to the ED for evaluation. On evaluation in the ED, afebrile, normocardiac, normotensive, and saturating adequately on room air. Initial labs are significant for mild leukopenia, normocytic anemia, hyperglycemia, and elevated ALP. Abdominopelvic CT significant for left-sided retroperitoneal adenopathy, worrisome for neoplasm, reticular nodule density seen at both lung bases, and few sclerotic and lucent lesions observed within the vertebral bodies. Lumbar spine x-ray shows age-indeterminate L1 compression deformity with 20% loss height, chronic appearing L4, L5 compression deformities with 20% loss height, moderate multilevel disc space narrowing with endplate sclerosis, [id number] bilateral sacroiliac degenerative joint disease. The patient was admitted for further workup and monitoring. CT chest /abdomen / pelvis with contrast was ordered which showed significant abnormal pancreatic duct dilation with large air-filled level and internal coarse calcification, pancreatic duct measures up to 3.6 cm, significant median lobe hypertrophy extending into the base of the bladder, mass of the posterior aspect of the bladder, incompletely characterized which may be related to prostate malignancy versus bladder malignancy, retroperitoneal lymphadenopathy, left urothelial thickening, and diffuse metastatic disease with pathologic fractures. PSA and free PSA are significantly elevated. The patient was for lymph node biopsy with IR. On evaluation, the patient is well. States his pain has resolved. we have discussed at length the high suspicion of cancer with both the patient and his at bedside, ME911 staff interpreter was used for utmost clarity. he is afebrile, normocardic, normotensive, and saturating adequately on room air. He is considered stable for discharge home with refill of home medications, Tylenol for pain control, and follow up appointment on 11/12/2025 to discuss pathology results. This was also explained with the use of ME911 staff interpreter and the importance of them attending this appointment. They state they understand and agree. Physical exam General: The patient alert and oriented in person place and time. Patient following commands HEENT: Normocephalic, atraumatic, normal reactive pupils, EOM intact, pink conjunctiva, pink moist mucous membrane Respiratory/pulmonary: Bilateral chest expansion, no pain on palpation of chest wall, clear lungs bilaterally, vesicular murmurs present in almost all lung elias, no associated crackles or wheezes. Back: No point tenderness on palpation of spinal column, point tenderness noted on palpation of posterior aspect of left rib 8 Cardiovascular: Normal RRR, normal S1 and S2, no murmurs Abdomen: Abdomen nondistended, normal bowel sounds, soft, there is no pain to palpation in any of the abdominal quadrants, no palpable masses. Extremities: No deformities, there is no peripheral edema present at the lower extremities, normal pulses Skin: No rashes or pruritus, there is no sacral edema present at this time. Neurological: Intact cranial nerves with no focal neurologic deficits Goals of care and discharge plan discussed with the patient for over 25 minutes Case discussed with Dr. Chun Consults/Reason for consult Interventional Radiology was consulted for lymph node biopsy Operations or Procedures XAM: CT CT AB PEL WO CON-NO ORAL OR IV History: LEFT FLANK PAIN Comparison Study: CT ABD PELVIS WO CONTRAST on DOS: 11/14/21 TECHNIQUE: Multidetector CT of the abdomen was performed from lung bases to pubic symphysis. Imaging was performed without IV contrast. Axial, coronal and sagittal multiplanar reformats were obtained from the axial data set by the technologist. Radiation Dose Information: CT Dose: CTDI volume is 5. mGy. Dose-length product is 317 mGy*cm FINDINGS: Evaluation of solid organs is limited due to lack of intravenous contrast use. FINDINGS: Lung Bases: Increased reticulonodular densities are seen at both lung bases. The nodules are subcentimeter. There is either a small amount of pleural thickening or effusion at the right lung base. Liver: The liver is normal in size. No focal lesions. Gallbladder and Biliary Tree: Unremarkable Spleen: Unremarkable Pancreas: The pancreas is grossly normal in appearance. Adrenal Glands: Unremarkable Kidneys: Kidneys are grossly normal without calculi or hydronephrosis. Bladder: Grossly unremarkable for degree of distention. Bowel: The stomach is grossly normal in appearance. Small bowel and colon are normal in caliber and distribution. The appendix is not visualized; however, no secondary findings of acute appendicitis identified. Ascites: Absent Lymphadenopathy: No mesenteric, retroperitoneal or periportal lymphadenopathy. Abdominal Wall and Mesentery /retroperitoneum: There is increased mixed density measuring 3.7 cm in the left retroperitoneal area within the pelvis. There is also additional left retroperitoneal adenopathy seen just superior to this area as well as multiple enlarged left retroperitoneal lymph nodes at the region of the left kidney. There is also stranding around the left kidney. Vasculature: The visualized abdominal aorta is normal in size and caliber. Evaluation of abdominal and pelvic vessels is limited due to lack of intravenous contrast. Pelvic Organs: Unremarkable Musculoskeletal: Compression fracture of undetermined age at T9. Scattered sclerotic and lucent lesions seen throughout the vertebral bodies. Soft tissues: Unremarkable IMPRESSION: 1. Left-sided retroperitoneal adenopathy, worrisome for neoplasm, this does appear amenable to percutaneous biopsy. Clinical correlation recommended 2. Reticular nodular density seen at both lung bases, considering the retroperitoneal adenopathy, metastatic disease can not be excluded, clinical correlation recommended. 3. A few sclerotic and lucent lesions are seen within the vertebral bodies, metastatic disease not excluded. 4. Radiation optimization: All CT scans at this facility use at least one of these dose optimization techniques: automated exposure control mA and/or kV adjustment per patient size (includes targeted exams where dose is matched to clinical indication) or iterative reconstruction. INDICATION: LEFT BACK PAIN TECHNIQUE: XY LUMBAR SPINE 3 VIEWXY Comparison: 10/30/2025 FINDINGS/IMPRESSION: Age indeterminate L1 compression deformity with 20% loss height. Correlate with pain symptoms. MRI lumbar spine can be obtained to further evaluate. Chronic appearing L4, L5 compression deformities with 20% loss height. Moderate multilevel disc space narrowing with endplate sclerosis. 3 mm retrolisthesis of L3 upon L4. Mild lumbar levocurvature. Atherosclerotic calcification disease. [id number] bilateral sacroiliac degenerative joint disease. EXAM: CT CT CHEST/AB/PL W CON- IV ONLY HISTORY: Possible metastatic cancer TECHNIQUE: Volumetric multidetector CT images of the abdomen and pelvis were obtained after the administration of intravenous contrast. All CT scans at this facility use dose modulation, iterative reconstruction, and/or weight based dosing when appropriate to reduce radiation dose to as low as reasonably achievable. COMPARISON: None FINDINGS: [LOWER CHEST]: Patchy areas of inconspicuous centrilobular ground-glass with diffuse distribution in bilateral lungs. Dominant area of peribronchovascular nodularity/thickening measuring up to 1.7 cm. Dominant measurable index pulmonary nodules measure up to 6 mm in the lateral basilar segment, right lower lobe. Consideration for pulmonary metastatic disease. The partially visualized lung bases are clear without a pleural effusion. Prominent subcarinal lymph node concerning for metastatic disease measuring 29 x 16 mm. Coronary artery calcifications. [LIVER]: Normal hepatic size without suspicious focal lesion. [GALLBLADDER AND BILIARY TREE]: No cholelithiasis. [SPLEEN]: Unremarkable. [PANCREAS]: Significant abnormal pancreatic ductal dilation with large air-fluid level and internal coarse calcification. Pancreatic duct measures up to 3.6 cm. [ADRENAL GLANDS]: Unremarkable [KIDNEYS]: No hydronephrosis. No nephroureterolithiasis. No suspicious focal lesion. [BLADDER]: Circumferential bladder wall thickening. Significant median lobe hypertrophy extending into the base of the bladder. Mass of the posterior aspect of the bladder, incompletely characterized which may be related to prostate malignancy versus bladder malignancy. [REPRODUCTIVE ORGANS]: Significant median lobe hypertrophy extending into the base of the bladder. [BOWEL/MESENTERY]: Stomach is normal. No CT evidence of bowel obstruction. [ASCITES]: Absent [LYMPHADENOPATHY]: Retroperitoneal lymphadenopathy. Left urothelial thickening/enhancement correlate for ascending urinary tract infection versus exaggeration secondary to multiple adjacent abnormal left lymphadenopathy likely coursing along the left gonadal vein. Dominant left para-aortic lymph node measures 2.1 x 2 cm. [VASCULATURE]: No aneurysmal dilatation. [ABDOMINAL WALL]: Unremarkable. [MUSCULOSKELETAL]: Sclerosis of the right posterior iliac bone. Multiple osseous sclerotic lesions along the left acetabulum, left ischial tuberosities, visualized axial and appendicular skeleton compatible with osseous metastatic disease. Multiple associated presumed pathologic fractures associated with the fractures. Significant sclerotic lesion of T6 without associated pathologic fracture. Pathologic compression deformity and anterior vertebral body fracture plane of T9. Multifocal degenerative change of the visualized spine. IMPRESSION: 1. Significant abnormal pancreatic ductal dilation with large air-fluid level and internal coarse calcification. 2. Pancreatic duct measures up to 3.6 cm. 3. Significant median lobe hypertrophy extending into the base of the bladder. 4. Mass of the posterior aspect of the bladder, incompletely characterized which may be related to prostate malignancy versus bladder malignancy. 5. Retroperitoneal lymphadenopathy. 6. Left urothelial thickening/enhancement correlate for ascending urinary tract infection versus exaggeration secondary to multiple adjacent abnormal left lymphadenopathy likely coursing along the left gonadal vein. 7. 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 8. Patchy areas of inconspicuous centrilobular ground-glass with diffuse distribution in bilateral lungs. 9. Dominant area of peribronchovascular nodularity/thickening measuring up to 1.7 cm. 10. Dominant measurable index pulmonary nodules measure up to 6 mm in the lateral basilar segment, right lower lobe. 11. Consideration for pulmonary metastatic disease. CT ABDOMEN WITHOUT CONTRAST, HISTORY: Retroperitoneal lymphadenopathy CT guided biopsy. PROCEDURE: Informed consent was obtained. The patient was placed prone on the CT scanner. A limited localization CT scan of the abdomen was obtained. The skin overlying the lesion was prepped with chlorhexidine which was allowed to dry and draped in sterile fashion. Time out was performed. The skin and soft tissues were infiltrated with Xylocaine, and IV fentanyl was administered. With intermittent CT guidance, a 17 gauge [place] outer coaxial guiding needle was advanced into the retroperitoneal lymphadenopathy. The needle position was confirmed with CT scan. Multiple core biopsies were obtained using Tem[place] inner 18 gauge biopsy needle. The specimens were sent in formalin to pathology and in RPMI to clinical lab for analysis. The needle was withdrawn, and post procedural CT obtained through the biopsy region. No immediate complication was identifiedwas noted, and patient was transport to recovery in stable condition. DLP = 1412 mGy-cm. FINDINGS: Limited CT scan demonstrates retroperitoneal lymphadenopathy. No significant post biopsy hemorrhage is noted. IMPRESSION/PLAN: CT guided retroperitoneal lymphadenopathy biopsy. Pathology results pending. CT ABDOMEN WITHOUT CONTRAST, HISTORY: Retroperitoneal lymphadenopathy CT guided biopsy. PROCEDURE: Informed consent was obtained. The patient was placed prone on the CT scanner. A limited localization CT scan of the abdomen was obtained. The skin overlying the lesion was prepped with chlorhexidine which was allowed to dry and draped in sterile fashion. Time out was performed. The skin and soft tissues were infiltrated with Xylocaine, and IV fentanyl was administered. With intermittent CT guidance, a 17 gauge [place] outer coaxial guiding needle was advanced into the retroperitoneal lymphadenopathy. The needle position was confirmed with CT scan. Multiple core biopsies were obtained using Tem[place] inner 18 gauge biopsy needle. The specimens were sent in formalin to pathology and in RPMI to clinical lab for analysis. The needle was withdrawn, and post procedural CT obtained through the biopsy region. No immediate complication was identifiedwas noted, and patient was transport to recovery in stable condition. DLP = 1412 mGy-cm. FINDINGS: Limited CT scan demonstrates retroperitoneal lymphadenopathy. No significant post biopsy hemorrhage is noted. IMPRESSION/PLAN: CT guided retroperitoneal lymphadenopathy biopsy. Pathology results pending. Condition at Discharge: Stable Final Diagnosis/Problems List Intractable back pain possibly due to possible bone metastases Possible prostate vs bladder malignancy Questionable pulmonary metastatic disease Iron deficiency anemia Type 2 diabetes mellitus with hyperglycemia, HbA1c 8 Hyperlipidemia Discharge Disposition: Home Discharge Instruct/Medications Diet: Consistent carbohydrate Activity: No Restrictions, As Tolerated Follow Up/Referral: Follow up in discharge clinic on 11/12/2025 at [address] Martínez Follow up with your PCP Medications: Per Emr Scheduled Atorvastatin Calcium (Atorvastatin Calcium), 10 MG PO DAILY, (Reported) Famotidine (Pepcid Tablet), 1 TAB PO BID Glipizide (Glipizide), 5 MG PO BID, (Reported) Ibuprofen Micronized (Ibuprofen), 800 MG PO TID Insulin Glargine (Lantus), 15 UNIT SC HS Insulin Glargine (Lantus Solostar), 10 UNIT SC HS Metformin Hydrochloride (Metformin Hcl), 1,000 MG PO IBID, (Reported) Discharge Statement: "Patient was advised to return to the ER or call 911 if any headaches, dizziness, shortness of breath, chest pain, abdominal pain, bleeding, fevers, or worsening of medical condition. Patient was counseled about treatment plan, medications, possible side effects, patientverbalized understanding. All questions were answered to the best of my ability. This discharge took greater then 30 minutes in planning, reviewing documentation, counseling the patient, and discussing with other team members." DME: Diagnosis: Gait instability risking possible fall, walker recommended by PT ASSESSMENT ASSESSMENT Assessment Intractable pain likely due to bone metastasis Visit Coding STANDARD RES Billing Provider: JAMI CHUN MD Date of Service if different f: Nov 03, 2025 MG MARTÍNEZ RESIDENT Nov 03, 2025 17:13
[2025-11-03 17:28] VITALS: BP 105/65; PULSE 80; RESP 16; TEMP 97.7; O2SAT 93
== END 2025-11-03 18:09 | disposition home or self-care (01) | DRG 516 ==
LOC: ER 14:09 → OVERFLOW 21:53 → WEST WING 23:53 → EAST 11-01 07:06
PROVIDERS: ADMIT Student in an Organized Health Care Education/Training Program; ATTEND Student in an Organized Health Care Education/Training Program
PROC: 07BD3ZX Excision of Aortic Lymphatic, Percutaneous Approach, Diagnostic (ICD-10-PCS; principal; 2025-11-03)
DX: C79.51 Secondary malignant neoplasm of bone (principal); C78.01 Secondary malignant neoplasm of right lung; D50.9 Iron deficiency anemia, unspecified; E11.65 Type 2 diabetes mellitus with hyperglycemia; C61 Malignant neoplasm of prostate; C67.9 Malignant neoplasm of bladder, unspecified; C78.02 Secondary malignant neoplasm of left lung; I10 Essential (primary) hypertension; E78.5 Hyperlipidemia, unspecified; M51.370 Other intervertebral disc degeneration, lumbosacral region with discogenic back pain only; K21.9 Gastro-esophageal reflux disease without esophagitis; R59.0 Localized enlarged lymph nodes; M46.1 Sacroiliitis, not elsewhere classified; Z79.4 Long term (current) use of insulin; Z79.84 Long term (current) use of oral hypoglycemic drugs; Z79.899 Other long term (current) drug therapy
CPT/HCPCS: 10005; 36415; 71260; 72100; 74150; 74176; 74177; 77012; 80048; 80053; 80061; 80307; 81001; 82306; 82378; 82728; 82962; 83036; 83540; 83550; 83690; 83735; 84154; 84443; 84484; 85007; 85025; 85027; 85610; 85730; 86301; 93005; 96360; 96361; 97163; G0378; J1815; J2003; J2250